=== PATIENT | male | born 1965 | race Two or more races ===

== ENCOUNTER 2024-09-21 04:44 | Observation (INO) | payer MEDICAID, SELFPAY ==
[2024-09-21] VITALS (16 sets, daily range): BP systolic 111–152; BP diastolic 46–102; PULSE 98–123; RESP 15–24; TEMP 36.5–36.9; O2SAT 91–100; BMI 21.7
--- NOTE | 2024-09-21 04:58 | EKG_ITS ---
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
--- NOTE | 2024-09-21 05:37 | XR_ITS ---
Examination: AP chest single view TECHNIQUE: Portable sitting AP chest single view Date and time: September 21, 2024 0553 hours INDICATIONS: Shortness of breath today. FINDINGS: Mild CHF Moderate large pericardial contour. Prominent vascular congestion. Early septal edema perihilar and at the lung bases IMPRESSION: Mild CHF
--- NOTE | 2024-09-21 05:38 | EDRME_ITS ---
Rapid Medical Screening Exam [facility] Arrival date/time: 09/21/24 04:44 59M with history of CHF and HTN presents to ED with 1 day of CP and SOB. Patient states his normal dose of Lasix (40 mg BID) was switched to (20 mg QD) 2 days ago. Patient denies URI symptoms. Chief Complaint: Shortness of Breath/Dyspnea Vital signs: Vital Signs Pulse Rate 109 H 09/21/24 05:06 Respiratory Rate 24 H 09/21/24 05:06 Blood Pressure 134/100 H 09/21/24 05:06 Pulse Oximetry (%) 100 09/21/24 05:06 Oxygen Delivery Method Nasal Cannula 09/21/24 05:06 Oxygen Flow Rate 3 09/21/24 05:06
[2024-09-21 06:04] LABS: Basophils # (Auto) 0.1 Thou/mm3 (0.0-0.2); Basophils % (Auto) 1 % (0-2.5); Eosinophils # (Auto) 0.3 Thou/mm3 (0.0-0.5); Eosinophils % (Auto) 3 % (0-10); Hematocrit 39.7 % (41.0-53.0); Hemoglobin 13.1 g/dL (13.5-16.0); Immature Granulocytes % (Auto) 0 % (0-0); Immature Granulocytes Auto 0.03 Thou/mm3 (0.00-0.00); Lymphocytes # (Auto) 1.8 Thou/mm3 (1.0-4.8); Lymphocytes % (Auto) 19 % (10-50); Mean Corpuscular Hemoglobin 27.9 pg (25.0-35.0); Mean Corpuscular Volume 85 fL (80-100); Monocytes # (Auto) 0.8 Thou/mm3 (0.0-0.8); Monocytes % (Auto) 9 % (0-12); Neutrophils # (Auto) 6.6 Thou/mm3 (1.8-7.7); Neutrophils % (Auto) 69 % (37-80); Nucleated Red Blood Cell % 0 /100 WBC (0); Platelet Count 212 Thou/mm3 (140-440); RDW Standard Deviation 60.6 fL (35.1-43.9); White Blood Count 9.7 Thou/mm3 (3.8-10.6)
[2024-09-21 06:32] LABS: Partial Thromboplastin Time 24.1 Seconds (22.0-36.0); Prothrombin Time 11.2 Seconds (9.0-12.2)
[2024-09-21 06:34] LABS: Alanine Aminotransferase 55 U/L (10-49); Albumin, Serum 4.1 gm/dL (3.5-5.0); Albumin/Globulin Ratio 1.5 (1.2-2.2); Alkaline Phosphatase 120 U/L (46-116); Anion Gap 11 (7-16); Aspartate Amino Transferase 41 U/L (0-34); BUN/Creatinine Ratio 25 Ratio (12-20); Bilirubin,Total 0.5 mg/dL (0.3-1.2); Blood Urea Nitrogen 30 mg/dL (9-23); Calcium 8.8 mg/dL (8.3-10.6); Calcium (Corrected) 8.8 mg/dL (8.5-10.1); Carbon Dioxide 24.2 mMol/L (20.0-31.0); Chloride 108 mMol/L (98-107); Creatinine (Component) 1.2 mg/dL (0.6-1.3); Estimated Creatinine Clearance 69.7 mL/min (>60); Globulin 2.8 gm/dL (2.3-3.5); Glucose 84 mg/dL (74-106); Magnesium 2.1 mg/dL (1.6-2.6); Osmolality,Calculated 290 (275-295); Potassium 4.2 mMol/L (3.4-5.1); Sodium 143 mMol/L (136-145); Total Protein 6.9 gm/dL (5.7-8.2); Troponin I 0.042 ng/mL (0.0-0.045); eGFR > 60 See Note
[2024-09-21] MEDS: FUROSEMIDE INJ 10 MG/ML 4ML VIAL 40 MG IVP ×2 (06:38→07:40)
[2024-09-21 06:39] LABS: B-Type Natriuretic Peptide 2852 pg/mL (0-100)
--- NOTE | 2024-09-21 07:26 | EDNOTE_ITS ---
ED SOB =RME/HPI General Chief Complaint: Shortness of Breath/Dyspnea Stated Complaint: SOB Time Seen by Provider: 09/21/24 06:32 Arrival date/time: 09/21/24 04:44 Limitations: no limitations RME / HPI RME / HPI Narrative: 09/21/24 04:44 59M with history of CHF and HTN presents to ED with 1 day of CP and SOB. Patient states his normal dose of Lasix (40 mg BID) was switched to (20 mg QD) 2 days ago. Patient denies URI symptoms. DR. BATRES MAIN ED EVALUATION: 59 year old male with history of CHF and hypertension presents to the ED for for evaluation of shortness of breath. Described feeling ?full of fluids.? The patient reports that three days ago, he ran out of his medications, which include Carvedilol 6.25 mg BID, Lasix 40 mg BID, potassium, and antihypertensive medication. He consulted with a new PMD, who refilled his prescriptions; however, the Lasix dose was reduced to 20 mg QD. The patient filled the medications yesterday and took one dose of Lasix 20 mg last night, but noted no improvement in his symptoms. Denies any associated fever, chills, chest pain, abdominal pain, nausea, vomiting, diarrhea, or urinary symptoms. Additionally, the patient admits to recent methamphetamine use, and last used four days ago. He recently admitted himself to a [facility] center for drug rehabilitation. Related Data Allergies Allergy/AdvReac Type Severity Reaction Status Date / Time Penicillins Allergy Severe Abdominal Verified 09/21/24 08:37 Pain Review of Systems Review of Systems Systems Reviewed: All systems reviewed, normal except as documented Past Medical History Past Medical History CARDIAC: Positive Congestive Heart Failure and Hypertension RESPIRATORY: Negative Chronic Obstructive Pulmonary Disease (COPD) GENITOURINARY: Negative Renal Disease ENDOCRINE: Negative Diabetes Mellitus Type 1 or Diabetes Mellitus Type 2 Social History SMOKING STATUS: Former smoker ED Exam General Limitations: Present no limitations General appearance: Present alert and other (Tachypneic with elevated respiratory rate, increased work of breathing) Head Head exam: Present atraumatic, normocephalic and normal inspection Eye Eye exam: Present normal appearance, PERRL and EOMI ENT ENT exam: Present normal exam, normal oropharynx and mucous membranes moist Neck Neck exam: Present normal inspection, full ROM and trachea midline Chest Chest inspection: Present normal inspection and symmetric chest wall rise Respiratory Respiratory exam: Present other (Bibasilar crackles, no rales) Cardiovascular Cardiovascular exam: Present regular rate, normal rhythm and normal heart sounds Abdominal Exam Abdominal exam: Present soft and normal bowel sounds Extremities Exam Extremities exam: Present full ROM and other (Discoloration to the skin on bilateral feet and ankles, mildly erythematous from venous stasis, 1-2+ pretibial edema non pitting. ) Back Exam Back exam: Present normal inspection and full ROM Neurological Exam Neurological exam: Present alert, oriented X3 and CN II-XII intact Psychiatric Psychiatric exam: Present normal affect and normal mood Skin Skin exam: Present warm, dry, intact and normal color Course Course Course Narrative: chest xray ordered to help determine etiology of shortness of breath. Quality Measures none Orders Category Date Time Status Admit to Inpatient Status Routine Admission 09/21/24 07:38 Active Patient Condition Routine Admission 09/21/24 07:[address] in Observation Status Routine Admission 09/21/24 07:50 Active Activity as Tolerated Routine Care 09/21/24 07:39 Ordered Bedside COVID-19 Antigen Test NOW Care 09/21/24 07:31 Active Bedside Influenza A&B Antigen Test NOW Care 09/21/24 07:31 Completed COVID-19 Screening Questionnaire NOW Care 09/21/24 07:31 Active Continuous Pulse Oximetry NOW Care 09/21/24 07:38 Completed Decision to Admit X1 Care 09/21/24 07:31 Completed EKG (ED ONLY) *Do not use* NOW Care 09/21/24 04:58 Completed Flu & Pneumonia Vaccine Screen ONCE Care 09/21/24 07:38 Active Notify provider NEEDED Care 09/21/24 07:38 Active Obtain weight daily Care 09/21/24 07:39 Active Saline [Insert IV] NOW Care 09/21/24 07:22 Completed Strict Intake and Output Routine Care 09/21/24 07:39 Ordered Diet Low Sodium (2gm) Diet 09/21/24 Lunch Active CA echo doppler complete Routine Exams 09/21/24 07:40 Ordered EKG (ED Only) Stat Exams 09/21/24 04:58 Draft XR chest 1V portable Stat Exams 09/21/24 05:37 Completed A1C [Glycohemoglobin w (eAG)] AM DRAW Lab 09/22/24 05:00 Ordered B-Type Natriuretic Peptide Stat Lab 09/21/24 05:45 Completed CBC AM DRAW Lab 09/22/24 05:00 Ordered CBC AM DRAW Lab 09/23/24 05:00 Ordered CBC AM DRAW Lab 09/24/24 05:00 Ordered CBC Stat Lab 09/21/24 05:45 Completed Comprehensive Metabolic Panel AM DRAW Lab 09/22/24 05:00 Ordered Comprehensive Metabolic Panel AM DRAW Lab 09/23/24 05:00 Ordered Comprehensive Metabolic Panel AM DRAW Lab 09/24/24 05:00 Ordered Comprehensive Metabolic Panel Stat Lab 09/21/24 05:45 Completed Drug Screen,Urine Stat Lab 09/21/24 07:51 Completed Lipid Panel AM DRAW Lab 09/22/24 05:00 Ordered Magnesium AM DRAW Lab 09/22/24 05:00 Ordered Magnesium Stat Lab 09/21/24 05:45 Completed Partial Thromboplastin Time Stat Lab 09/21/24 05:45 Completed Phosphorous AM DRAW Lab 09/22/24 05:00 Ordered Prothrombin Time with INR Stat Lab 09/21/24 05:45 Completed Troponin I Stat Lab 09/21/24 05:45 Completed Acetaminophen Tab [Tylenol Tab] Med 09/21/24 07:38 Active 650 mg PO Q6H PRN Albuterol/Ipratr Rt Zora [Duoneb Rt Zora] Med 09/21/24 05:36 Discontinued 3 ml INH X1 ONE Furosemide Inj [Lasix Inj] Med 09/21/24 06:23 Discontinued 40 mg IVP X1 ONE Furosemide Inj [Lasix Inj] Med 09/21/24 07:22 Discontinued 40 mg IVP X1 ONE Furosemide [Lasix] Med 09/21/24 05:39 Discontinued 40 mg PO X1 ONE Heparin Inj Med 09/21/24 09:00 Active 5,000 unit SC Q12HR Nitroglycerin Oint 2% [Nitro-paste Oint 2%] Med 09/21/24 07:23 Discontinued 1 inch TOP X1 ONE Ondansetron Inj [Zofran Inj] Med 09/21/24 07:38 Active 4 mg IVP Q6H PRN Senna [Senokot] Med 09/21/24 07:38 Active 1 tab PO QDAY PRN metOLazone [Zaroxolyn] Med 09/21/24 07:23 Discontinued 5 mg PO X1 ONE Code Status Routine Oth 09/21/24 07:38 Ordered Late Tray Request Routine Oth 09/21/24 07:25 Active Vital Signs Vital signs: Vital Signs Pulse Rate 109 H 09/21/24 05:06 Respiratory Rate 24 H 09/21/24 05:06 Blood Pressure 134/100 H 09/21/24 05:06 Pulse Oximetry (%) 100 09/21/24 05:06 Oxygen Delivery Method Nasal Cannula 09/21/24 05:06 Oxygen Flow Rate 3 09/21/24 05:06 Pulse ox is 100% on3L nasal cannula which is adequate. Shortness of Breath / Dyspnea MDM Narrative MDM Narrative:: Aislinn Sorto am scribing for and in the presence of Dr. Batres. 59 year old male with known CHF and hypertension presented with worsening shortness of breath and signs of volume overload after recent medication noncompliance and a reduction in diuretic dosing. Elevated BNP supports acute decompensated heart failure. The patient is hypoxic on presentation, and imaging reveals a pericardial effusion, which may contribute to his symptoms. Given the clinical picture, he was admitted for management of acute CHF exacerbation with hypoxia and close monitoring of the pericardial effusion. Patient data External records reviewed:: None (No previous records for review ) Clinical information provided by:: patient Social determinants that could affect healthcare access:: substance use (Polysubstance abuse, reports smoking marijuana, tobacco, cocaine, and methamphetamine (last smoked 4 days ago) ) Patient has the following chronic illnesses:: CHF, hypertension How is presenting disease/condition affected by chronic disease/condition?: exacerbated by Evaluation data The following diagnostics were reviewed and interpreted by me:: EKG tracing(s) (EKG @ 05:03. Sinus tachycardia, rate 109, ND 173ms, QRS 114ms, QT/QTc 358/422ms, no STEMI. ) Lab and/or radiology exams considered but not ordered:: None Interpretation Summary: Ordering Physician: Memo Jean-Baptiste PA-C Date of Service: 09/21/24 Procedure(s): XR chest 1V portable Accession Number(s): [id number] cc: Brody Randolph MD; Memo Jean-Baptiste PA-C~ Examination: AP chest single view TECHNIQUE: Portable sitting AP chest single view Date and time: September 21, 2024 0553 hours INDICATIONS: Shortness of breath today. FINDINGS: Mild CHF Moderate large pericardial contour. Prominent vascular congestion. Early septal edema perihilar and at the lung bases IMPRESSION: Mild CHF Dictated By: Brody Randolph MD Signed By: <Electronically signed by Brody Randolph MD in OV> 09/21/24 0717 Medications / Prescriptions Medications or Prescriptions considered but not ordered:: None Medication administrations:: Medication Administration History Acetaminophen (Acetaminophen 325 Mg Tablet) 650 mg PO Q6H PRN PRN Reason: Pain 1-3 and/or Fever >100.1 Stop: 10/21/24 07:37 Carvedilol (Carvedilol 3.125 Mg Tablet) 6.25 mg PO BIDWM [facility] Stop: 10/21/24 09:19 Last Admin: 09/21/24 09:57 Dose: 6.25 mg Documented By: ROSMERY Folic Acid (Folic Acid 1 Mg Tablet) 1 mg PO BID [facility] Stop: 09/26/24 20:59 Heparin Sodium (Porcine) (Heparin Sod Inj 5000 Unit/Ml Vial) 5,000 unit SC Q12HR [facility] Stop: 10/05/24 08:59 Last Admin: 09/21/24 08:32 Dose: 5,000 unit Documented By: ROSMERY Co-signed By: DB Lorazepam (Lorazepam 0.5 Mg Tablet) 0.5 mg PO Q4HR PRN PRN Reason: CIWA Score 2-6 Stop: 09/26/24 09:15 Lorazepam (Lorazepam 0.5 Mg Tablet) 1 mg PO Q4HR PRN PRN Reason: CIWA SCORE 7-11 Stop: 09/26/24 09:15 Last Admin: 09/21/24 09:56 Dose: 1 mg Documented By: ROSMERY Lorazepam (Lorazepam 0.5 Mg Tablet) 2 mg PO Q4HR PRN PRN Reason: CIWA SCORE 12-15 Stop: 09/26/24 09:15 Lorazepam (Lorazepam 2 Mg/Ml Vial) 2 mg IV Q2HR PRN PRN Reason: CIWA SCORE 20-25 Stop: 09/26/24 09:15 Lorazepam (Lorazepam 2 Mg/Ml Vial) 2 mg IVP X1 PRN PRN Reason: Breakthrough Agitation Lorazepam (Lorazepam 2 Mg/Ml Vial) 1 mg IV Q2HR PRN PRN Reason: CIWA SCORE 16-19 Stop: 09/26/24 09:15 Ondansetron HCl (Ondansetron Inj 2 Mg/Ml Inj 2 Ml) 4 mg IVP Q6H PRN; Protocol PRN Reason: NAUSEA OR VOMITING Stop: 10/21/24 07:37 Sennosides (Senna Tablet) 1 tab PO QDAY PRN; Protocol PRN Reason: constipation Stop: 10/21/24 07:37 Thiamine HCl (Thiamine 100 Mg Tablet) 100 mg PO BID SUSI Stop: 09/26/24 20:59 Discontinued Medications Albuterol/Ipratropium (Albuterol/Ipratropium (Duoneb) Rt Zora 3 Ml Nebu) 3 ml INH X1 ONE Stop: 09/21/24 05:37 Last Admin: 09/21/24 05:52 Dose: Not Given Documented By: AC Non-Admin Reason: Discontinued Furosemide (Furosemide 40 Mg Tablet) 40 mg PO X1 ONE Stop: 09/21/24 05:40 Last Admin: 09/21/24 06:52 Dose: Not Given Documented By: AC Non-Admin Reason: Discontinued Furosemide (Furosemide Inj 10 Mg/Ml 4ml Vial) 40 mg IVP X1 ONE Stop: 09/21/24 06:24 Last Admin: 09/21/24 06:38 Dose: 40 mg Documented By: CG Furosemide (Furosemide Inj 10 Mg/Ml 4ml Vial) 40 mg IVP X1 ONE Stop: 09/21/24 07:23 Last Admin: 09/21/24 07:40 Dose: 40 mg Documented By: DB Lorazepam (Lorazepam 2 Mg/Ml Vial) 1 mg IV Q2HR PRN PRN Reason: CIWA SCORE 16-19 Stop: 09/26/24 09:15 Metolazone (Metolazone 2.5 Mg Tablet) 5 mg PO X1 ONE Stop: 09/21/24 07:24 Last Admin: 09/21/24 08:29 Dose: 5 mg Documented By: SM Nitroglycerin (Nitroglycerin Oint 2% 1 Inch Packet) 1 inch TOP X1 ONE Stop: 09/21/24 07:24 Last Admin: 09/21/24 07:43 Dose: 1 inch Documented By: DB See above Consultations Consultation(s) initiated? (list below): Yes Consultation #1 (Physician, Specialty, Details): I spoke with resident Dr. Corley working with Dr. Agustin. Discussed patients PMHx, HPI, ED course, exam findings, labs, and radiology results. The hospitalist agree to accept the patient for admission. Time: 07:30 Diagnosis Shortness of Breath Differential Diagnosis: acute exacerbation of chronic obstructive airways disease, congestive heart failure and community acquired pneumonia Most likely diagnosis given after review of the tests above:: Acute CHF Acute hypoxia Acute pericardial effusion Methamphetamine abuse Admission Indicated Admission indicated?: indicated Admission Request Was there a request for admission?: Yes Admission Attestation Admission request attestation: Discussed case with [] from Hospitalist service regarding admission. Discussed patients ED course, exam findings, labs, and radiology results. The Hospitalist [agrees,declines] to accept the patient for admission. Disposition Plan Disposition Plan: Admit Critical Care Time Critical Care Time Critical Care Time: Yes Total Critical Care Time (min.): 45 Attestation: The high probability of sudden, clinically significant deterioration in the patient's condition required the highest level of my preparedness to intervene urgently. The services I provided to this patient were to treat and/or prevent clinically significant deterioration. Services included the following: chart data review, reviewing nursing notes and/or old charts, documentation time, desktop support consultant collaboration regarding findings and treatment options, medication orders and management, direct patient care, vital sign assessments and ordering, interp reting and reviewing diagnostic studies and lab tests. Aggregate critical care time includes only time during which I was engaged in work directly related to the patient's care, as described above, whether at bedside or elsewhere in the Emergency Department. It did not include time spent performing other reported procedures or the services of residents, students, nurses or physician assistants. Discharge Plan Plan Patient Disposition: Admit Acute Care w/in Hospital Problem List Clinical Impression: Acute CHF, Acute pericardial effusion, Methamphetamine abuse, Hypoxia
[2024-09-21] MEDS: NITROGLYCERIN OINT 2% 1 INCH PACKET TOP (07:43)
[2024-09-21 08:28] LABS: Amphetamine/Methamp Scrn,U Positive (Negative); Barbiturate Screen,Urine Negative (Negative); Benzodiazepines Screen,Urine Negative (Negative); Benzoylecgonine Screen, Ur Negative (Negative); Fentanyl Screen,Urine Negative (Negative); Opiate Screen,Urine Negative (Negative); THC Screen,Urine Negative (Negative)
[2024-09-21] MEDS: metOLazone 2.5 MG TABLET 5 MG PO (08:29)
[2024-09-21] MEDS: HEPARIN SOD INJ 5000 UNIT/ML VIAL SC ×2 (08:32→20:07)
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
[2024-09-21] MEDS: LORazepam 0.5 MG TABLET 1 MG PO (09:56)
[2024-09-21] MEDS: carVEDILOL 3.125 MG TABLET 6.25 MG PO ×2 (09:57→17:38)
--- NOTE | 2024-09-21 11:46 | PC.CC ---
Monica DUNN approved until 09/21/25.
--- NOTE | 2024-09-21 12:15 | PC.NURSE ---
PT TALKING TO SELF, STATING THE NURSING ARE WEARING COFFEE ATTENDANT UNIFORMS, AND THEY ARE ONTO ME, I ANIT NO CHILD MOLESTER. PT WAS REORIENTED AND WAS GIVEN AN UPDATE ON PLAN OF CARE.
[2024-09-21] MEDS: LORazepam 2 MG/ML VIAL 1 MG IV (12:19)
[2024-09-21 12:50] LABS: Troponin I 0.045 ng/mL (0.0-0.045)
--- NOTE | 2024-09-21 13:33 | PC.CC ---
MEDICAL ENGINEER student introduced self, role reason for visit. Patient appears to be alert but not oriented to self, location or situation. Patient was unable to engage in initial assessment due to not being receptive of questions being asked. services coordinator to remain available to address further concerns.
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
[2024-09-21] MEDS: ACETAMINOPHEN 325 MG TABLET 650 MG PO (20:05)
[2024-09-21] MEDS: ATORVASTATIN CALCIUM 20 MG TABLET 40 MG PO (20:05)
[2024-09-21] MEDS: FOLIC ACID 1 MG TABLET PO (20:06)
[2024-09-21] MEDS: THIAMINE 100 MG TABLET PO (20:06)
[2024-09-21] MEDS: LORazepam 0.5 MG TABLET PO (20:27)
--- NOTE | 2024-09-21 23:10 | PC.NURSE ---
ICU engineering specialist technician called regarding patient had a run of 7 PVCs and run of v tach for a few seconds now back to sinus tach in the low 100s. Assessed patient at bedside, asymptomatic, no complaints of chest pain, headache, although patient was moving in bed but was resting comfortably in bed. Called Dr. Tobar regarding this, no new orders received.
[2024-09-22] VITALS (13 sets, daily range): BP systolic 106–127; BP diastolic 73–90; PULSE 83–103; RESP 14–24; TEMP 36–36.4; O2SAT 93–98; BMI 21.7
[2024-09-22] MEDS: FUROSEMIDE INJ 10 MG/ML 4ML VIAL 40 MG IVP (04:00)
[2024-09-22] MEDS: LORazepam 0.5 MG TABLET 1 MG PO ×2 (04:11→21:25)
[2024-09-22 06:09] LABS: Basophils # (Auto) 0.1 Thou/mm3 (0.0-0.2); Basophils % (Auto) 1 % (0-2.5); Eosinophils # (Auto) 0.4 Thou/mm3 (0.0-0.5); Eosinophils % (Auto) 6 % (0-10); Hematocrit 40.3 % (41.0-53.0); Hemoglobin 13.3 g/dL (13.5-16.0); Immature Granulocytes % (Auto) 0 % (0-0); Immature Granulocytes Auto 0.03 Thou/mm3 (0.00-0.00); Lymphocytes # (Auto) 2.3 Thou/mm3 (1.0-4.8); Lymphocytes % (Auto) 33 % (10-50); Mean Corpuscular Hemoglobin 27.4 pg (25.0-35.0); Mean Corpuscular Volume 83 fL (80-100); Monocytes # (Auto) 0.5 Thou/mm3 (0.0-0.8); Monocytes % (Auto) 7 % (0-12); Neutrophils # (Auto) 3.7 Thou/mm3 (1.8-7.7); Neutrophils % (Auto) 53 % (37-80); Nucleated Red Blood Cell % 0 /100 WBC (0); Platelet Count 235 Thou/mm3 (140-440); RDW Standard Deviation 58.4 fL (35.1-43.9); Red Blood Count 4.85 Miln/mm3 (4.50-5.90); White Blood Count 6.9 Thou/mm3 (3.8-10.6)
[2024-09-22 06:20] LABS: Glucose Estimated Average 131 mg/dL (80-131); Hemoglobin A1C 6.2 % Hgb (4.8-6.0)
[2024-09-22 06:59] LABS: Alanine Aminotransferase 48 U/L (10-49); Albumin/Globulin Ratio 1.5 (1.2-2.2); Alkaline Phosphatase 113 U/L (46-116); Anion Gap 15 (7-16); Aspartate Amino Transferase 37 U/L (0-34); BUN/Creatinine Ratio 25 Ratio (12-20); Bilirubin,Total 0.7 mg/dL (0.3-1.2); Blood Urea Nitrogen 32 mg/dL (9-23); Calcium 8.9 mg/dL (8.3-10.6); Calcium (Corrected) 8.9 mg/dL (8.5-10.1); Carbon Dioxide 24.4 mMol/L (20.0-31.0); Chloride 100 mMol/L (98-107); Creatinine (Component) 1.3 mg/dL (0.6-1.3); Estimated Creatinine Clearance 64.4 mL/min (>60); Globulin 2.7 gm/dL (2.3-3.5); Glucose 142 mg/dL (74-106); HDL Cholesterol 41 mg/dL (40-60); Magnesium 1.9 mg/dL (1.6-2.6); Osmolality,Calculated 286 (275-295); Phosphorous 4.2 mg/dL (2.4-5.1); Potassium 3.5 mMol/L (3.4-5.1); Sodium 139 mMol/L (136-145); Total Protein 6.7 gm/dL (5.7-8.2); Triglycerides 85 mg/dL (30-150); eGFR > 60 See Note
[2024-09-22] MEDS: THIAMINE 100 MG TABLET PO ×2 (09:00→21:24)
[2024-09-22] MEDS: HEPARIN SOD INJ 5000 UNIT/ML VIAL SC ×2 (09:01→21:38)
[2024-09-22] MEDS: Magnesium Sulfate 2 GM Ivpb 2 GM/50 ML BAG IV (09:01)
[2024-09-22] MEDS: FOLIC ACID 1 MG TABLET PO ×2 (09:01→21:25)
[2024-09-22] MEDS: ASPIRIN EC 81 MG TABEC PO (09:01)
[2024-09-22] MEDS: SACUBITRIL 24 MG/VALSARTAN 26 MG TABLET 1 TAB PO ×2 (09:01→21:24)
[2024-09-22] MEDS: POTASSIUM CHLORIDE 20 mEq TABCR 40 MEQ PO (09:01)
[2024-09-22] MEDS: carVEDILOL 3.125 MG TABLET 6.25 MG PO ×2 (09:01→17:19)
--- NOTE | 2024-09-22 09:43 | ESPR_ITS ---
Documentation for date of: 09/22/24 Subjective Subjective Interval history: No acute overnight events. Reports feeling well this morning, shortness of breath improved significantly. Continued on room air, satting well, vitals WNL. Continued on LASIX 40 BID, had 1.6 L urine output, overall -650 net balance, LE edema improving. Had slight bump in creatinine 1.2 > 1.3, BUN 32. LFTs improving. Recommend continue to LASIX 40 mg IV BID as long as renal function and electrolytes tolerating, may switch to LASIX 40 mg orally otherwise. Likely he will need LASIX 40 mg p.o. daily on discharge. Continue with ENTRESTO. Continue CARVEDILOL. Primary team added FARXIGA, appropriate for CHF and A1C 6.2. Recommended follow-up with cardiology within 1 to 2 weeks with repeat BMP 2 days prior to appointment. Exam Vital Signs Temp Pulse Resp BP Pulse Ox O2 Del Method O2 Flow Rate 97.6 F 99 14 111/80 96 Room Air 2 09/22/24 08:00 09/22/24 09:01 09/22/24 08:00 09/22/24 09:01 09/22/24 08:00 09/22/24 08:00 09/21/24 22:00 Narrative Exam GENERAL * Normal appearing adult male, on room air, NAD HEENT * NCAT.?BERTRAM. Oral mucosa is moist. Patent Nares NECK * Supple, nontender, no thyromegaly, no meningismus, +JVD, no step offs CHEST * Tachycardic, regular rhythm, no m/g/r * Mod bibasilar crackles bilaterally, no wheezing. Symmetrical chest rise. No intercostal subcostal retraction * Atraumatic, nontender, no crepitus, symmetrical expansion. ABDOMEN * Soft, flat, nontender. No guarding/rebound tenderness/masses. * Bowel sounds presents EXTREMITIES * 1+ dustin LE edema. * Mild tenderness to palpation over inferior left scapula without mass or bony deformity. SKIN * Warm and dry, no jaundice/rashes. NEUROMUSCULAR * No lumbar or midline, no CVA, no paraspinal muscle spasm or tenderness. * Moves all 4 extremities well, with full ROM and good CSM. * HUMMEL x4, CN II-XII grossly intact. * No focal neurologic deficits. PSYCHIATRY * Racing thoughts, cooperative, no SI or HI or hallucinations. Objective Labs 09/22/24 05:30 09/22/24 05:30 Labs: Laboratory Results - last 24 hr 09/21/24 09/22/24 12:13 05:30 WBC 6.9 RBC 4.85 Hgb 13.3 L Hct 40.3 L MCV 83 MCH 27.4 MCHC 33.0 RDW Std Deviation 58.4 H Plt Count 235 Neut % (Auto) 53 Lymph % (Auto) 33 [place] % (Auto) 7 Eos % (Auto) 6 Baso % (Auto) 1 Neut # (Auto) 3.7 Lymph # (Auto) 2.3 [place] # (Auto) 0.5 Eos # (Auto) 0.4 Baso # (Auto) 0.1 Immature Gran # (Auto) 0.03 H Absolute Nucleated RBC 0.00 Immature Gran % 0 Nucleated RBC % 0 Sodium 139 Potassium 3.5 D Chloride 100 Carbon Dioxide 24.4 Anion Gap 15 BUN 32 H Creatinine 1.3 Estim Creat Clear Calc 64.4 eGFR > 60 BUN/Creatinine Ratio 25 H Glucose [address] Glu mg/dL 131 Hemoglobin A1c 6.2 H Calculated Osmolality 286 Calcium 8.9 Corrected Calcium 8.9 Phosphorus 4.2 Magnesium 1.9 Total Bilirubin 0.7 AST 37 H ALT 48 Alkaline Phosphatase 113 Troponin I 0.045 Total Protein 6.7 Albumin 4.0 Globulin 2.7 Albumin/Globulin Ratio 1.5 Triglycerides 85 HDL Cholesterol 41 Quality Measures Quality Measures none Assessment & Plan Assessment Current Active Medications: Generic Name Dose Route Start Last Admin Trade Name Freq PRN Reason Stop Dose Admin Acetaminophen 650 mg 09/21/24 07:38 09/21/24 20:05 Acetaminophen 325 Mg Tablet PO 10/21/24 07:37 650 mg Q6H PRN Administration Pain 1-3 and/or Fever >100.1 Aspirin 81 mg 09/22/24 09:00 09/22/24 09:01 Aspirin Ec 81 Mg Tabec PO 10/22/24 08:59 81 mg QDAY SUSI Administration Atorvastatin Calcium 40 mg 09/21/24 21:00 09/21/24 20:05 Atorvastatin Calcium 20 Mg Tablet PO 10/21/24 20:59 40 mg HS SUSI Administration Carvedilol 6.25 mg 09/21/24 09:20 09/22/24 09:01 Carvedilol 3.125 Mg Tablet PO 10/21/24 09:19 6.25 mg BIDWM SUSI Administration Dapagliflozin 5 mg 09/22/24 09:00 09/22/24 09:02 Dapagliflozin Propanediol 5 Mg Tablet PO 10/22/24 08:59 Not Given QAM SUSI Folic Acid 1 mg 09/21/24 21:00 09/22/24 09:01 Folic Acid 1 Mg Tablet PO 09/26/24 20:59 1 mg BID SUSI Administration Furosemide 40 mg 09/22/24 07:00 09/22/24 07:15 Furosemide Inj 10 Mg/Ml 4ml Vial IVP 10/22/24 06:59 Not Given BID SUSI Heparin Sodium (Porcine) 5,000 unit 09/21/24 09:00 09/22/24 09:01 Heparin Sod Inj 5000 Unit/Ml Vial SC 10/05/24 08:59 5,000 unit Q12HR SUSI Administration Magnesium Sulfate 2 gm in 50 mls @ 25 mls/hr 09/22/24 08:12 09/22/24 09:01 Magnesium Sulfate Ivpb IV 09/22/24 10:11 25 mls/hr X1 ONE Administration Lorazepam 0.5 mg 09/21/24 09:16 09/21/24 20:27 Lorazepam 0.5 Mg Tablet PO 09/26/24 09:15 0.5 mg Q4HR PRN Administration CIWA Score 2-6 Lorazepam 1 mg 09/21/24 09:16 09/22/24 04:11 Lorazepam 0.5 Mg Tablet PO 09/26/24 09:15 1 mg Q4HR PRN Administration CIWA SCORE 7-11 Lorazepam 2 mg 09/21/24 09:16 Lorazepam 0.5 Mg Tablet PO 09/26/24 09:15 Q4HR PRN CIWA SCORE 12-15 Lorazepam 2 mg 09/21/24 09:16 Lorazepam 2 Mg/Ml Vial IV 09/26/24 09:15 Q2HR PRN CIWA SCORE 20-25 Lorazepam 2 mg 09/21/24 09:16 Lorazepam 2 Mg/Ml Vial IVP X1 PRN Breakthrough Agitation Lorazepam 1 mg 09/21/24 09:21 09/21/24 12:19 Lorazepam 2 Mg/Ml Vial IV 09/26/24 09:15 1 mg Q2HR PRN Administration CIWA SCORE 16-19 Ondansetron HCl 4 mg 09/21/24 07:38 Ondansetron Inj 2 Mg/Ml Inj 2 Ml IVP 10/21/24 07:37 Q6H PRN NAUSEA OR VOMITING Protocol Sacubitril/Valsartan 1 tab 09/22/24 09:00 09/22/24 09:01 Sacubitril 24 Mg/Valsartan 26 Mg Tablet PO 10/22/24 08:59 1 tab BID SUSI Administration Sennosides 1 tab 09/21/24 07:38 Senna Tablet PO 10/21/24 07:37 QDAY PRN constipation Protocol Thiamine HCl 100 mg 09/21/24 21:00 09/22/24 09:00 Thiamine 100 Mg Tablet PO 09/26/24 20:59 100 mg BID SUSI Administration Plan This is a 59 year-old male coming from [facility] rehab, with PMHx of CHF on home O2 and diuretics, s/p ICD placement, HTN, chronic polysubstance use disorder including METH, COCAINE, TOBACCO and ALCOHOL, IVDU, presenting with worsening SOB and acute chest pain. AHRF 2/2 CHF exacerbation s/p PCI Presentation consistent with acute CHF exacerbation, SOB and worsening LE edema following decrease of home LASIX. He has hx of CHF on home oxygen PRN, follows up with cardiology in [place]. BNP 2852, CXR mod congestion (no PNA) and cardiomegaly, bibasilar crackles, 3+ dustin LE edema which improved after diuresis. Symptoms improved with diuresis, satting well on room air, denies sob or chest pain or palpitations. TG 85, HDL 41, cholesterol and LDL pending. TSH and T4 are pending. A1c 6.2 Continued on LASIX 40 IV BID, had good urine output, overall 650 cc net negative, lower extremity edema improving, satting well on room air. Denies shortness of breath, chest pain or palpitations. Has slight bump in creatinine to 1.3, BUN 42. Recommend continue to LASIX 40 mg IV BID as long as renal function and electrolytes tolerating, may switch to LASIX 40 mg orally otherwise. Continue with ENTRESTO. Continue CARVEDILOL. Continue FARXIGA Likely he will need LASIX 40 mg p.o. daily on discharge Recommended follow-up with cardiology within 1 to 2 weeks with repeat BMP 2 days prior to appointment. Will follow-up with echocardiogram. HTN, HLD Tachycardia (resolved) Significant LVH NSTEMI type 2 SBP normal, DBP slightly elevated likely volume overload, or METH induced tachycardia. HR 110 likely reactive in setting of hypoxemia 2/2 volume overload. EKG sinus tachycardia, ST deviation consistent with LVH 2/2 chronic HTN (no murmur on exam). Trop 0.42 > 0.45 likely NSTEMI type 2, chest pain likely MSK based as noted in HPI. Lipid panel and TSH as noted above. Remains asymptomatic without chest pain, dizziness, lightheadedness or SOB. On ENTRESTO, tolerating well, normotensive, HR WNL Will follow-up with echo to evaluate for AV dysfunction and wall motion abnormalities. Prediabetes A1C 6.2 Now on FARXIGA Polysubstance use disorder As noted in HPI. 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 Management of rest of the medical conditions as per primary team and other consultants. Thank you for the consult and allowing me to participate in the care of the patient. Cardiology will continue to follow. Case was discussed with attending, Dr. Kaur. Sonia Garcia, DO PGYI Attending Provider Attestation/Addendum I have personally seen and examined the patient separately on the above date of service and discussed the plan of care with the resident. I reviewed the resident Dr. Sonia Garcia consultation progress note and agree with the resident findings and plan in the note above and have also edited the documentation to reflect my findings and plan. Jean Kaur M.D. Interventional Cardiology
[2024-09-22 10:27] LABS: Cardiac Risk Estimate 3.8 RATIO (4.0-6.7); Cholesterol 154 mg/dL (132-200); LDL Cholesterol,Calculated 96 mg/dL (0-130)
[2024-09-22 11:52] LABS: Free T4 (Free Thyroxine) 1.14 ng/dL (0.89-1.76); Thyroid Stimulating Hormone 9.41 uIU/mL (0.55-4.78)
--- NOTE | 2024-09-22 14:14 | ECHO_ITS ---
Transthoracic Echo Report Ht (in): 72 Wt (lb): 160 Exam Location: Echo Lab Status: Inpatient Project Drilling Engineer: Melly Mckeon Indications: Procedure Performed: BP: 94 / 69 HR: MEASUREMENTS (Male / Female) Normal Values 2D ECHO LV Diastolic Diameter PLAX 6.9 cm 4.2 - 5.9 / 3.9 - 5.3 cm LV Systolic Diameter PLAX 6.4 cm IVS Diastolic Thickness 0.8 cm 0.6 - 1.0 / 0.6 - 0.9 cm LVPW Diastolic Thickness 0.8 cm 0.6 - 1.0 / 0.6 - 0.9 cm LV Relative Wall Thickness 0.2 LVOT Diameter 1.6 cm LV Ejection Fraction MOD BP 22.3 % >= 55 % LV Ejection Fraction MOD 4C 23.5 % LV Ejection Fraction 4C AL 23.6 % LV Ejection Fraction MOD 2C 17.5 % LV Ejection Fraction 2C AL 15.9 % LA Volume Index 43.2 cm?/m? 16 - 28 cm?/m? M-MODE Aortic Root Diameter MM 3.2 cm LA Systolic Diameter MM 5.0 cm LA Ao Ratio MM 1.6 MV E Point Septal Separation 2.8 cm AV Cusp Separation MM 1.8 cm DOPPLER AV Peak Velocity 127.0 cm/s AV Peak Gradient 6.5 mmHg AV Mean Gradient 3.0 mmHg AV Velocity Time Integral 22.4 cm LVOT Peak Velocity 97.2 cm/s LVOT Peak Gradient 3.8 mmHg LVOT Velocity Time Integral 14.2 cm AV Area Cont Eq vti 1.3 cm? AV Area Cont Eq pk 1.5 cm? MV Area PHT 5.5 cm? MR Peak Velocity 521.0 cm/s MR Peak Gradient 108.6 mmHg Mitral E Point Velocity 69.4 cm/s Mitral A Point Velocity 88.8 cm/s Mitral E to A Ratio 0.8 LV E' Lateral Velocity 3.1 cm/s Mitral E to LV E' Lateral Ratio 22.0 LV E' Septal Velocity 4.0 cm/s Mitral E to LV E' Septal Ratio 17.2 TR Peak Velocity 248.3 cm/s TR Peak Gradient 24.7 mmHg PV Peak Velocity 71.9 cm/s PV Peak Gradient 2.1 mmHg FINDINGS Left Ventricle Normal left ventricular size and wall thickness. The ejection fraction is visually estimated at 15-20%.global left ventricular systolic function is severely decreased. There is grade II diastolic dysfunction of the left ventricle (pseudonormal filling pattern). Right Ventricle The right ventricle is normal in size and systolic function. The estimated right ventricular systolic pressure, 31 mmHg. RAP 5. Left Atrium Moderately increased left atrial volume 43.2 mL/m?. Right Atrium The right atrial cavity size is mildly increased. Atrial Septum The interatrial septum appears normal with no evidence of a shunt. Aorta The aorta is normal by two-dimensional, color flow and Doppler interrogation. Mitral Valve The mitral valve is normal by two-dimensional, color flow and Doppler interrogation. Moderate mitral regurgitation. Aortic Valve The aortic valve is trileaflet and normal by two-dimensional, color flow and Doppler interrogation. There is no significant aortic valve regurgitation. Tricuspid Valve The tricuspid valve is normal by two-dimensional, color flow and Doppler interrogation. There is mild tricuspid valve regurgitation. Pulmonic Valve The pulmonic valve is not well visualized. There is no significant pulmonic valve regurgitation. Vessels The pulmonary artery appears normal. The inferior vena cava pulmonary and hepatic veins appear normal. Pericardium The pericardium is normal by two-dimensional imaging. There is no significant pericardial effusion. CONCLUSIONS Indication: CHF Normal LV size and wall thickness. Estimated EF 15-20%. Global left ventricular systolic function is severely decreased. Grade II diastolic dysfunction. Normal RV size and mild systolic dysfunction. The estimated RVSP, 31 mmHg. RAP 5. Moderately increased LA volume 44 mL/m?. The RA size is mildly increased. Moderate MR. Mild TR. Dilated IVC. Jean Kaur (Electronically Signed) Final Date: 24 Sep 2024 11:02
--- NOTE | 2024-09-22 15:13 | ESPR_ITS ---
Documentation for date of: 09/22/24 Subjective Subjective Interval history: Patient was seen and examined at bedside this AM. No acute events overnight. Patient on fluid restriction diet 1500cc, adequate urine output and mentation is at baseline. Patient endorses improvement of shortness of breath improved significantly. Sats 95-97% on room air, ambulation encouraged, tolerating well. Over the last 24 hours, he had -1.2L net balance (not documented adequately). Nurse advised for strict I&Os documentation Started on GDMT with LASIX 40 qD + ENTRESTO 1tab BID + CARVEDILOL 6.25 BID - tolerating well. Will add FARXIGA 5mg for optimization, also for A1c 6.2% . Appreciate Cardiology input. Will recommended follow-up with cardiology after discharge as well as repeat BMP 2 days prior to appointment. Exam Vital Signs Temp Pulse Resp BP Pulse Ox O2 Del Method O2 Flow Rate 97.6 F 99 24 H 111/80 96 Room Air 2 09/22/24 08:00 09/22/24 12:00 09/22/24 08:58 09/22/24 09:01 09/22/24 08:58 09/22/24 08:00 09/21/24 22:00 Narrative Exam Constitutional Alert, oriented x3 and comfortable. On RA HEENT Vision grossly intact. Patent nares. Trachea midline. Respiratory Chest normal on inspection and soft wheezes on auscultation. Cardiovascular S1 and S2 audible, RRR. No murmurs or carotid bruit. + JVD. Abdominal Soft and BS + ; non tender to palpation in all quadrants. Genitourinary No bladder tenderness, no flank pain. Normal to palpation. Good urine output Musculoskeletal Extremities tone within normal limits. No LE edema. Neurological CN II - XII grossly intact. Extremity motor and sensation grossly intact. Skin Warm, dry and intact. No apparent lesions. Psychiatric Patient has a good affect, is cooperative. Objective Labs 09/23/24 05:07 09/23/24 05:07 Labs: Laboratory Results - last 24 hr 09/22/24 05:30 WBC 6.9 RBC 4.85 Hgb 13.3 L Hct 40.3 L MCV 83 MCH 27.4 MCHC 33.0 RDW Std Deviation 58.4 H Plt Count 235 Neut % (Auto) 53 Lymph % (Auto) 33 [place] % (Auto) 7 Eos % (Auto) 6 Baso % (Auto) 1 Neut # (Auto) 3.7 Lymph # (Auto) 2.3 [place] # (Auto) 0.5 Eos # (Auto) 0.4 Baso # (Auto) 0.1 Immature Gran # (Auto) 0.03 H Absolute Nucleated RBC 0.00 Immature Gran % 0 Nucleated RBC % 0 Sodium 139 Potassium 3.5 D Chloride 100 Carbon Dioxide 24.4 Anion Gap 15 BUN 32 H Creatinine 1.3 Estim Creat Clear Calc 64.4 eGFR > 60 BUN/Creatinine Ratio 25 H Glucose [address] Glu mg/dL 131 Hemoglobin A1c 6.2 H Calculated Osmolality 286 Calcium 8.9 Corrected Calcium 8.9 Phosphorus 4.2 Magnesium 1.9 Total Bilirubin 0.7 AST 37 H ALT 48 Alkaline Phosphatase 113 Total Protein 6.7 Albumin 4.0 Globulin 2.7 Albumin/Globulin Ratio 1.5 Triglycerides 85 Cholesterol 154 LDL Cholesterol, Calc 96 HDL Cholesterol 41 Cholesterol/HDL Ratio 3.8 L TSH 9.41 H Free T4 1.14 Quality Measures Quality Measures none Assessment & Plan Assessment Current Active Medications: Generic Name Dose Route Start Last Admin Trade Name Freq PRN Reason Stop Dose Admin Acetaminophen 650 mg 09/21/24 07:38 09/21/24 20:05 Acetaminophen 325 Mg Tablet PO 10/21/24 07:37 650 mg Q6H PRN Administration Pain 1-3 and/or Fever >100.1 Aspirin 81 mg 09/22/24 09:00 09/22/24 09:01 Aspirin Ec 81 Mg Tabec PO 10/22/24 08:59 81 mg QDAY SUSI Administration Atorvastatin Calcium 40 mg 09/21/24 21:00 09/21/24 20:05 Atorvastatin Calcium 20 Mg Tablet PO 10/21/24 20:59 40 mg HS SUSI Administration Carvedilol 6.25 mg 09/21/24 09:20 09/22/24 09:01 Carvedilol 3.125 Mg Tablet PO 10/21/24 09:19 6.25 mg BIDWM SUSI Administration Dapagliflozin 5 mg 09/22/24 09:00 09/22/24 09:02 Dapagliflozin Propanediol 5 Mg Tablet PO 10/22/24 08:59 Not Given QAM SUSI Folic Acid 1 mg 09/21/24 21:00 09/22/24 09:01 Folic Acid 1 Mg Tablet PO 09/26/24 20:59 1 mg BID SUSI Administration Furosemide 40 mg 09/23/24 09:00 Furosemide 40 Mg Tablet PO 10/23/24 08:59 QDAY SUSI Heparin Sodium (Porcine) 5,000 unit 09/21/24 09:00 09/22/24 09:01 Heparin Sod Inj 5000 Unit/Ml Vial SC 10/05/24 08:59 5,000 unit Q12HR SUSI Administration Lorazepam 0.5 mg 09/21/24 09:16 09/21/24 20:27 Lorazepam 0.5 Mg Tablet PO 09/26/24 09:15 0.5 mg Q4HR PRN Administration CIWA Score 2-6 Lorazepam 1 mg 09/21/24 09:16 09/22/24 04:11 Lorazepam 0.5 Mg Tablet PO 09/26/24 09:15 1 mg Q4HR PRN Administration CIWA SCORE 7-11 Lorazepam 2 mg 09/21/24 09:16 Lorazepam 0.5 Mg Tablet PO 09/26/24 09:15 Q4HR PRN CIWA SCORE 12-15 Lorazepam 2 mg 09/21/24 09:16 Lorazepam 2 Mg/Ml Vial IV 09/26/24 09:15 Q2HR PRN CIWA SCORE 20-25 Lorazepam 2 mg 09/21/24 09:16 Lorazepam 2 Mg/Ml Vial IVP X1 PRN Breakthrough Agitation Lorazepam 1 mg 09/21/24 09:21 09/21/24 12:19 Lorazepam 2 Mg/Ml Vial IV 09/26/24 09:15 1 mg Q2HR PRN Administration CIWA SCORE 16-19 Ondansetron HCl 4 mg 09/21/24 07:38 Ondansetron Inj 2 Mg/Ml Inj 2 Ml IVP 10/21/24 07:37 Q6H PRN NAUSEA OR VOMITING Protocol Sacubitril/Valsartan 1 tab 09/22/24 09:00 09/22/24 09:01 Sacubitril 24 Mg/Valsartan 26 Mg Tablet PO 10/22/24 08:59 1 tab BID SUSI Administration Sennosides 1 tab 09/21/24 07:38 Senna Tablet PO 10/21/24 07:37 QDAY PRN constipation Protocol Thiamine HCl 100 mg 09/21/24 21:00 09/22/24 09:00 Thiamine 100 Mg Tablet PO 09/26/24 20:59 100 mg BID SUSI Administration Plan Mr Aguilar is a 59-year-old male with past medical history of coronary artery disease status post stent placement, hypertension, congestive heart failure, hyperlipidemia, substance use disorder (meth, cocaine, marijuana) presenting to the ED on 09/21 with episode of chest pain and shortness of breath will be admitted for observation of chest pain with echocardiogram ordered for CHF exacerbation and cardiology consultation. Acute decompensation of congestive heart failure History of coronary artery disease, status post stent Primary Hypertension T2 DM , A1c 6.2% As stated above, patient has history of congestive heart failure. Guideline based medical therapy pending official med rec Patient follows Dr. Antony who has recommended ICD placement Per HPI, patient's been having chest pain shortness of breath since yesterday around 9 PM On examination, patient has anxiety but denies having active chest pain. JVD is present. Troponin stable at 0.042 => 0.045 - BNP of 2852 - EKG : sinus tachycardia with possible left atrial enlargement, left ventricular hypertrophy and some T wave changes noted on lateral leads. - Chest x-ray : moderate to large pericardial contour, mild CHF, prominent vascular congestion and early septal edema at the perihilar and lung bases. - In the ED, patient received a total of 80 mg of Lasix with good urine output adequate response; also given nitroglycerin patch - NYHA Class II at baseline - Over the last 24 hours, he had -1.2L net balance (not documented adequately) Plan: - Cardiology consulted, appreciate recommendations - ECHO ordered - Transitioned from IV -> PO LASIX 40 qD - On ENTRESTO 1tab BID - On CARVEDILOL 6.25 BIDWM - Added FARXIGA 5mg for optimization, also for A1c 6.2% - Strict input/output charting - Daily weight recording - Fluid restriction to 1.5L - Will keep magnesium greater than 2 and potassium greater than 4 Hyperlipidemia Lipid panel : wnl Plan: - Will restart home medication: atorvastatin 40 mg p.o. at bedtime Substance use disorder Alcohol use disorder Patient in [facility] program for substance use disorder (meth use disorder, cocaine use disorder and marijuana use disorder) Patient is U-Tox positive for methamphetamine and he states that his last drink was about 4 days ago Plan: - [facility] protocol initiated - special services supervisor consult Hospital Management: Dispo: Pending echo read. Anticipate DC in 24 hours. Lines: PIV Diet: Cardiac w/ fluid restriction to 1500cc Bowel: Senna GI prophylaxis: Not needed DVT prophylaxis: Heparin subcu Code: Full code Plan of care discussed with attending Angelo Guardado M.D. PGY2 Disclaimer: Minor errors in vp data may be present as this note was dictated using voice recognition software. Attending Provider Attestation/Addendum Noreen, Brenda Agustin DO, attest that I was physically present for the gilliam portions of the service and evaluated the patient with the resident and I reviewed and discussed the case with the resident and agree with the resident's findings and plans of care as documented above Patient seen and eval this a.m. He states that he is feeling improved. Patient is able to speak in full sentences and does not appear short of breath. Pending echocardiogram results at this time. He remains on goal-directed medical therapy with diuretics, beta-rosy and Entresto. Pending cardio recommendations. Anticipate discharge within next 24 hours.
[2024-09-22] MEDS: ATORVASTATIN CALCIUM 20 MG TABLET 40 MG PO (21:24)
[2024-09-22] MEDS: ACETAMINOPHEN 325 MG TABLET 650 MG PO (21:26)
--- NOTE | 2024-09-22 21:42 | PC.NURSE ---
pt feeling sob, requesting O2 inh on. 97% O2 sat on room air- Applied O2 inh on at 1L/min/nc.
--- NOTE | 2024-09-22 21:43 | PC.NURSE ---
Per pt needs a stent placement, if possible while admitted here at [facility]. Per pt three yrs ago had a stent placed on right leg at [facility]. He needed stent on left leg also but anesthesiologis /md rescheduled it because of longer hours in surgery if they do left and right leg together and pt may not tolerate longer hours. Two to 3 mons. ago per pt he was sheduled for stent plcement on left leg but went ama like a day before surgery.
[2024-09-23] VITALS (8 sets, daily range): BP systolic 94–109; BP diastolic 69–89; PULSE 86–95; RESP 16–28; TEMP 36.1–36.4; O2SAT 92–99; BMI 21.7
[2024-09-23 05:54] LABS: Basophils # (Auto) 0.1 Thou/mm3 (0.0-0.2); Basophils % (Auto) 2 % (0-2.5); Eosinophils # (Auto) 0.5 Thou/mm3 (0.0-0.5); Eosinophils % (Auto) 6 % (0-10); Hematocrit 44.3 % (41.0-53.0); Hemoglobin 14.7 g/dL (13.5-16.0); Immature Granulocytes % (Auto) 0 % (0-0); Immature Granulocytes Auto 0.03 Thou/mm3 (0.00-0.00); Lymphocytes # (Auto) 2.9 Thou/mm3 (1.0-4.8); Lymphocytes % (Auto) 33 % (10-50); Mean Corpuscular HGB Conc 33.2 g/dl (31.0-37.0); Mean Corpuscular Hemoglobin 27.6 pg (25.0-35.0); Mean Corpuscular Volume 83 fL (80-100); Monocytes % (Auto) 11 % (0-12); Neutrophils # (Auto) 4.2 Thou/mm3 (1.8-7.7); Neutrophils % (Auto) 48 % (37-80); Nucleated Red Blood Cell % 0 /100 WBC (0); Platelet Count 275 Thou/mm3 (140-440); RDW Standard Deviation 57.1 fL (35.1-43.9); Red Blood Count 5.33 Miln/mm3 (4.50-5.90); White Blood Count 8.7 Thou/mm3 (3.8-10.6)
[2024-09-23 06:29] LABS: Alanine Aminotransferase 45 U/L (10-49); Albumin, Serum 3.6 gm/dL (3.5-5.0); Albumin/Globulin Ratio 1.4 (1.2-2.2); Alkaline Phosphatase 111 U/L (46-116); Anion Gap 9 (7-16); Aspartate Amino Transferase 35 U/L (0-34); BUN/Creatinine Ratio 26 Ratio (12-20); Bilirubin,Total 0.6 mg/dL (0.3-1.2); Blood Urea Nitrogen 31 mg/dL (9-23); Calcium 8.5 mg/dL (8.3-10.6); Calcium (Corrected) 8.8 mg/dL (8.5-10.1); Carbon Dioxide 25.4 mMol/L (20.0-31.0); Chloride 104 mMol/L (98-107); Creatinine (Component) 1.2 mg/dL (0.6-1.3); Estimated Creatinine Clearance 69.7 mL/min (>60); Globulin 2.6 gm/dL (2.3-3.5); Glucose 86 mg/dL (74-106); Osmolality,Calculated 281 (275-295); Potassium 4.2 mMol/L (3.4-5.1); Sodium 138 mMol/L (136-145); Total Protein 6.2 gm/dL (5.7-8.2); eGFR > 60 See Note
[2024-09-23] MEDS: Furosemide 40 MG TABLET PO (08:19)
[2024-09-23] MEDS: ASPIRIN EC 81 MG TABEC PO (08:19)
[2024-09-23] MEDS: carVEDILOL 3.125 MG TABLET PO (08:19)
[2024-09-23] MEDS: FOLIC ACID 1 MG TABLET PO (08:20)
[2024-09-23] MEDS: SACUBITRIL 24 MG/VALSARTAN 26 MG TABLET 1 TAB PO (08:20)
[2024-09-23] MEDS: THIAMINE 100 MG TABLET PO (08:20)
[2024-09-23] MEDS: DAPAGLIFLOZIN PROPANEDIOL 5 MG TABLET PO (08:20)
--- NOTE | 2024-09-23 10:03 | ESPR_ITS ---
Documentation for date of: 09/23/24 Subjective Subjective Interval history: No acute overnight events. Feels well today, reports no new symptoms or worsening of symptoms. Satting well on room air. BP slightly soft today, HR 80s. CR improved slightly 1.3 > 1.2, BUN 32 > 31. Remainder CHEM panel and CBC are relatively normal. Continue with current management, COREG, ENTRESTO, LASIX and FARXIGA. ECHO showed EEF 15-20%, decrease LV and RV function, dilated cardiomyopathy, diastolic dysfunction present but cannot be graded, mild-mod MR/TR. Will continue with GDMT. Recommended METH/COCAINE cessation given given ECHO findings. Mortality remains very high. Will need ICD however currently not a candidate given active METH use. Will need close cardiology follow-up after discharge, repeat ECHO in 3 months. Exam Vital Signs Temp Pulse Resp BP Pulse Ox O2 Del Method O2 Flow Rate 97.0 F 87 28 H 107/80 97 Room Air 2 09/23/24 08:00 09/23/24 08:19 09/23/24 08:15 09/23/24 08:19 09/23/24 08:15 09/23/24 08:00 09/23/24 08:00 Narrative Exam GENERAL * Normal appearing adult male, on room air, NAD HEENT * NCAT.?BERTRAM. Oral mucosa is moist. Patent Nares NECK * Supple, nontender, no thyromegaly, no meningismus, +JVD, no step offs CHEST * RRR, no m/g/r * Mod bibasilar crackles bilaterally, no wheezing. Symmetrical chest rise. No intercostal subcostal retraction * Atraumatic, nontender, no crepitus, symmetrical expansion. ABDOMEN * Soft, flat, nontender. No guarding/rebound tenderness/masses. * Bowel sounds presents EXTREMITIES * No dustin LE edema. * Mild tenderness to palpation over inferior left scapula without mass or bony deformity. SKIN * Warm and dry, no jaundice/rashes. NEUROMUSCULAR * No lumbar or midline, no CVA, no paraspinal muscle spasm or tenderness. * Moves all 4 extremities well, with full ROM and good CSM. * HUMMEL x4, CN II-XII grossly intact. * No focal neurologic deficits. PSYCHIATRY * Racing thoughts, cooperative, no SI or HI or hallucinations. Objective Labs 09/23/24 05:07 09/23/24 05:07 Labs: Laboratory Results - last 24 hr 09/22/24 09/23/24 05:30 05:07 WBC 8.7 RBC 5.33 Hgb 14.7 Hct 44.3 MCV 83 MCH 27.6 MCHC 33.2 RDW Std Deviation 57.1 H Plt Count 275 D Neut % (Auto) 48 Lymph % (Auto) 33 Glasscock % (Auto) 11 Eos % (Auto) 6 Baso % (Auto) 2 Neut # (Auto) 4.2 Lymph # (Auto) 2.9 Glasscock # (Auto) 1.0 H Eos # (Auto) 0.5 Baso # (Auto) 0.1 Immature Gran # (Auto) 0.03 H Absolute Nucleated RBC 0.00 Immature Gran % 0 Nucleated RBC % 0 Sodium 138 Potassium 4.2 D Chloride 104 Carbon Dioxide 25.4 Anion Gap 9 BUN 31 H Creatinine 1.2 Estim Creat Clear Calc 69.7 eGFR > 60 BUN/Creatinine Ratio 26 H Glucose 86 D Calculated Osmolality 281 Calcium 8.5 Corrected Calcium 8.8 Magnesium 2.0 Total Bilirubin 0.6 AST 35 H ALT 45 Alkaline Phosphatase 111 Total Protein 6.2 Albumin 3.6 Globulin 2.6 Albumin/Globulin Ratio 1.4 Cholesterol 154 LDL Cholesterol, Calc 96 Cholesterol/HDL Ratio 3.8 L TSH 9.41 H Free T4 1.14 Quality Measures Quality Measures none Assessment & Plan Assessment Current Active Medications: Generic Name Dose Route Start Last Admin Trade Name Freq PRN Reason Stop Dose Admin Acetaminophen 650 mg 09/21/24 07:38 09/22/24 21:26 Acetaminophen 325 Mg Tablet PO 10/21/24 07:37 650 mg Q6H PRN Administration Pain 1-3 and/or Fever >100.1 Aspirin 81 mg 09/22/24 09:00 09/23/24 08:19 Aspirin Ec 81 Mg Tabec PO 10/22/24 08:59 81 mg QDAY SUSI Administration Atorvastatin Calcium 40 mg 09/21/24 21:00 09/22/24 21:24 Atorvastatin Calcium 20 Mg Tablet PO 10/21/24 20:59 40 mg HS SUSI Administration Carvedilol 3.125 mg 09/23/24 08:00 09/23/24 08:19 Carvedilol 3.125 Mg Tablet PO 10/23/24 07:59 3.125 mg BIDWM SUSI Administration Dapagliflozin 5 mg 09/22/24 09:00 09/23/24 08:20 Dapagliflozin Propanediol 5 Mg Tablet PO 10/22/24 08:59 5 mg QAM SUSI Administration Folic Acid 1 mg 09/21/24 21:00 09/23/24 08:20 Folic Acid 1 Mg Tablet PO 09/26/24 20:59 1 mg BID SUSI Administration Furosemide 40 mg 09/23/24 09:00 09/23/24 08:19 Furosemide 40 Mg Tablet PO 10/23/24 08:59 40 mg QDAY SUSI Administration Lorazepam 0.5 mg 09/21/24 09:16 09/21/24 20:27 Lorazepam 0.5 Mg Tablet PO 09/26/24 09:15 0.5 mg Q4HR PRN Administration CIWA Score 2-6 Lorazepam 1 mg 09/21/24 09:16 09/22/24 21:25 Lorazepam 0.5 Mg Tablet PO 09/26/24 09:15 1 mg Q4HR PRN Administration CIWA SCORE 7-11 Lorazepam 2 mg 09/21/24 09:16 Lorazepam 0.5 Mg Tablet PO 09/26/24 09:15 Q4HR PRN CIWA SCORE 12-15 Lorazepam 2 mg 09/21/24 09:16 Lorazepam 2 Mg/Ml Vial IV 09/26/24 09:15 Q2HR PRN CIWA SCORE 20-25 Lorazepam 2 mg 09/21/24 09:16 Lorazepam 2 Mg/Ml Vial IVP X1 PRN Breakthrough Agitation Lorazepam 1 mg 09/21/24 09:21 09/21/24 12:19 Lorazepam 2 Mg/Ml Vial IV 09/26/24 09:15 1 mg Q2HR PRN Administration CIWA SCORE 16-19 Ondansetron HCl 4 mg 09/21/24 07:38 Ondansetron Inj 2 Mg/Ml Inj 2 Ml IVP 10/21/24 07:37 Q6H PRN NAUSEA OR VOMITING Protocol Sacubitril/Valsartan 1 tab 09/22/24 09:00 09/23/24 08:20 Sacubitril 24 Mg/Valsartan 26 Mg Tablet PO 10/22/24 08:59 1 tab BID SUSI Administration Sennosides 1 tab 09/21/24 07:38 Senna Tablet PO 10/21/24 07:37 QDAY PRN constipation Protocol Thiamine HCl 100 mg 09/21/24 21:00 09/23/24 08:20 Thiamine 100 Mg Tablet PO 09/26/24 20:59 100 mg BID SUSI Administration Plan This is a 59 year-old male coming from [facility] rehab, with PMHx of CHF on home O2 and diuretics, s/p ICD placement, HTN, chronic polysubstance use disorder including METH, COCAINE, TOBACCO and ALCOHOL, IVDU, presenting with worsening SOB and acute chest pain. 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 He has hx of CHF on home oxygen PRN, follows up with cardiology in [place]. BNP 2852, CXR mod congestion (no PNA) and cardiomegaly, bibasilar crackles, 3+ dustni LE edema which improved after diuresis. Symptoms improved with diuresis, satting well on room air, denies sob or chest pain or palpitations. TG 85, HDL 41, cholesterol 154, LDL 96. TSH 9.41, free T4 1.14. A1c 6.2 ECHO showed EEF 15-20%, decrease LV and RV function, dilated cardiomyopathy, diastolic dysfunction present but cannot be graded, mild-mod MR/TR. Continued on LASIX 40 PO daily, had 500 cc urine output. No signs of fluid overload, no lower extremity edema, lungs are clear, on room air, satting well. Denies shortness of breath or chest pain. He had slight bump in creatinine yesterday, but renal function appears better today, CR 1.2, BUN 31. Will continue with GDMT. Recommended METH/COCAINE cessation given given ECHO findings. Mortality remains very high. Will need ICD however currently not a candidate given active METH use. Will need close cardiology follow-up after discharge, repeat ECHO in 3 months. Continue LASIX 40 mg NPO daily Continue with ENTRESTO BID Continue CARVEDILOL 3.125 mg daily Continue FARXIGA 5 mg daily Likely he will need LASIX 40 mg p.o. daily on discharge Will follow-up with echocardiogram. Recommended follow-up with cardiology within 1 to 2 weeks with repeat BMP 2 days prior to appointment. HTN, HLD Tachycardia (resolved) Significant LVH NSTEMI type 2 SBP normal, DBP slightly elevated likely volume overload, or METH induced tachycardia. HR 110 likely reactive in setting of hypoxemia 2/2 volume overload. EKG sinus tachycardia, ST deviation consistent with LVH 2/2 chronic HTN (no murmur on exam). Trop 0.42 > 0.45 likely NSTEMI type 2, chest pain likely MSK based as noted in HPI. Lipid panel and TSH as noted above. Remains asymptomatic without chest pain, dizziness, lightheadedness or SOB. On ENTRESTO, tolerating well, BP slightly soft, HR WNL Will follow-up with echo to evaluate for AV dysfunction and wall motion abnormalities. Prediabetes A1C 6.2 Now on FARXIGA Polysubstance use disorder As noted in HPI. 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 Management of rest of the medical conditions as per primary team and other consultants. Thank you for the consult and allowing me to participate in the care of the patient. Cardiology will continue to follow. Case was discussed with attending, Dr. Kaur. Sonia Garcia DO PGYI Attending Provider Attestation/Addendum I have personally seen and examined the patient separately on the above date of service and discussed the plan of care with the resident. I reviewed the resident Dr. Sonia Garcia consultation progress note and agree with the resident findings and plan in the note above and have also edited the documentation to reflect my findings and plan. Jean Kaur M.D. Interventional Cardiology
--- NOTE | 2024-09-23 11:30 | ESDS_ITS ---
<Statement entered by Brenda Agustin DO - 09/23/24 16:40> I, Brenda Agustin DO, attest that I was physically present for the gilliam portions of the service and evaluated the patient with the resident and I reviewed and discussed the case with the resident and agree with the resident's findings and plans of care as documented above Planned Discharge Date 09/23/24 DS: Providers Provider Date of admission: 09/21/24 08:07 Primary care physician: Physician No Primary/Family Admitting Provider: Brenda Agustin DO Attending Provider on Admission: Brenda Agustin DO Consults: 09/21/24 10:23 Consult to Cardiology Routine Comment: acute CHF Consulting Provider: Jean Kaur 09/21/24 10:51 Referral Registered Dietitian Stat Comment: 09/22/24 08:06 Referral Registered Dietitian Routine Comment: Attending Provider on DC: Brenda Agustin DO Discharging Provider: Oleksandr Blanco MD DS: Diagnosis Discharge Diagnosis (1) Acute CHF: Status: Acute (2) Methamphetamine abuse: Status: Acute Problem List Completed Was Problem List Reviewed/Reconciled?: Yes Hospital Course Hospital Course Hospital course: Hospital Course: Mr Aguilar is a 59-year-old male with past medical history of coronary artery disease status post stent placement, hypertension, congestive heart failure, hyperlipidemia, substance use disorder (meth, cocaine, marijuana) presenting to the ED on 09/21 with episode of chest pain and shortness of breath will be admitted for observation of chest pain with echocardiogram ordered for CHF exacerbation and cardiology consultation. BNP of 2852 on labs. Chest x-ray showed moderate to large pericardial contour, mild CHF, prominent vascular congestion and early septal edema at the perihilar and lung bases. Per Cardio recommendations, will continue with GDMT with COREG, ENTRESTO, LASIX and FARXIGA. ECHO showed EEF 15-20%, decrease LV and RV function, dilated cardiomyopathy, diastolic dysfunction present but cannot be graded, mild-mod MR/TR. Will continue with GDMT. Recommended METH/COCAINE cessation given given ECHO findings. Mortality remains very high. Patient will need ICD however currently not a candidate given active METH use. Will need close cardiology follow-up after discharge, with repeat ECHO in 3 months. Problems on this admission: - Acute decompensation of congestive heart failure - History of coronary artery disease, status post stent - Primary Hypertension - T2 DM , A1c 6.2% - Hyperlipidemia - Substance use disorder - Alcohol use disorder Procedures: ECHO : Estimated LVEF 15-20%, severe RV and LV dysfunction, dilated cardiomyopathy. Severe MR and TR. Discharge instructions: - Follow up with PCP within 1 week. Call [phone] for an appointment at [facility] on [phone] - Take Lasix 40mg daily for heart failure - Started Farxiga 5mg , Entresto 1tab twice daily and Coreg 3.125 twice daily for optimization - Continue aspirin and atorvastatin - Avoid consuming more than 1.5 - 2L fluid in a day. - Return to ED if symptoms worsen We are grateful to be able to participate in Mr Aguilar's care. We wish him the best. Plan of care discussed with attending Oleksandr Guardado M.D. PGY2 Disclaimer: Minor errors in development system efficiency manager may be present as this note was dictated using voice recognition software. Status at Discharge Cognitive/behavioral status at discharge: Stable and returned to baseline Time Spent with Patient Time attestation: Total time spent providing and/or coordinating discharge services: more htan 50% Time spent: Greater than 30 minutes Exam Vital Signs Temp Pulse Resp BP Pulse Ox O2 Del Method O2 Flow Rate 97.0 F 87 28 H 107/80 97 Room Air 2 09/23/24 08:00 09/23/24 08:19 09/23/24 08:15 09/23/24 08:19 09/23/24 08:15 09/23/24 08:00 09/23/24 08:00 Narrative Exam Constitutional Alert, oriented x3 and comfortable. On RA HEENT Vision grossly intact. Patent nares. Trachea midline. Respiratory Chest normal on inspection and soft wheezes on auscultation. Cardiovascular S1 and S2 audible, RRR. No murmurs or carotid bruit. + JVD. Abdominal Soft and BS + ; non tender to palpation in all quadrants. Genitourinary No bladder tenderness, no flank pain. Normal to palpation. Good urine output Musculoskeletal Extremities tone within normal limits. No LE edema. Neurological CN II - XII grossly intact. Extremity motor and sensation grossly intact. Skin Warm, dry and intact. No apparent lesions. Psychiatric Patient has a good affect, is cooperative. Discharge Plan Plan Patient Disposition: HOME (Self Care) Patient condition on transfer: Stable Care Plan Goals: - Follow up with PCP within 1 week. Call [phone] for an appointment at [facility] on [phone] - Take Lasix 40mg daily for heart failure - Started Farxiga 5mg , Entresto 1tab twice daily and Coreg 3.125 twice daily for optimization - Continue aspirin and atorvastatin - Avoid consuming more than 1.5 - 2L fluid in a day. - Return to ED if symptoms worsen Prescriptions/Referrals Prescriptions/Med Rec: New atorvastatin 20 mg Tablet 40 mg PO HS 30 Days Qty: 60 0RF aspirin [Ecotrin Low Strength] 81 mg Tablet,Delayed Release (Dr/Ec) 81 mg PO QDAY 30 Days Qty: 30 0RF furosemide 40 mg Tablet 40 mg PO QDAY 30 Days Qty: 30 0RF carvedilol 3.125 mg Tablet 3.125 mg PO BIDWM 30 Days Qty: 30 0RF dapagliflozin propanediol 5 mg Tablet 5 mg PO QAM 30 Days Qty: 30 0RF Entresto 24-26 mg Tablet 1 tab PO BID 30 Days Qty: 60 0RF Referrals: Jean Kaur MD [Physician] - No Primary/Family,Physician [Primary Care Provider] - Patient/Caregiver Discharge Instructions Discharge Activity: resume usual activities Education Materials: Heart Failure: Evaluating Your Heart Print Language: Paraguayan Stand Alone Forms: Ellie Award Info., Patient Portal Info Letter, Work/Release Restrictions Discharge Order Discharge Orders: Discharge (Routine); Ordered 09/23/24 Ordered By: Oleksandr Blanco Quality Discharge Quality Measures VTE prophylaxis
[2024-09-23] MEDS: LORazepam 0.5 MG TABLET PO (12:06)
--- NOTE | 2024-09-23 15:30 | PC.SS ---
Late Entry Mihir Ellis is 59 year old male admitted to [facility] for CHF Exacerbation. SS conducted bedside contact with the patient to complete initial assessment and to discuss discharge planning.? SW used all precautionary measures to complete initial. Role and reason for the contact was explained to Mihir. Pt is alert and oriented times 4. Patient confirmed demographic information and confirmed address. Pt has been residing at [facility] for the past week and plans to return there upon discharge. Patient identifies Juan C Ellis, father, as his surrogate decision maker. Pt states prior to hospitalization he is able to complete most ADL?s independently. Pt does not use DME equiptment and asked if he could get a wheelchair, SS stated that it is unlikely due to he is mobile. Pt states he uses O2 at his parents home; but when assessment completed pt was not using O2. Pt will reach out to his parents for the O2 to be taken to [facility]. Pt confirmed no history of mental health. Pt has hx of substance abuse and why he is at [facility]. Pts PCP is [facility]. Pharmacy of choice is [facility]. Discharge options discussed and the pt return to [facility]. ?[facility] representatives will provide transportation upon DC. No further intervention required at this time, social media director would be available to address any further concerns. DC Plan: [facility] ? Contact: Juan C Ellis, , Address: Confirmed on face sheet PCP: [facility]on
== END 2024-09-23 13:39 | disposition home or self-care (01) ==
LOC: SERX 08:04 → SERHOLD 08:28 → S3NX 09-23 11:20 → S3SX 09-25 09:27 → SERHOLD 09-25 09:27
PROVIDERS: Physician Assistant; Admitting Provider Internal Medicine; Emergency Provider Family Medicine; PCP Student in an Organized Health Care Education/Training Program
DX: I11.0 Hypertensive heart disease with heart failure (principal); E11.9 Type 2 diabetes mellitus without complications; E78.5 Hyperlipidemia, unspecified; F14.10 Cocaine abuse, uncomplicated; F15.10 Other stimulant abuse, uncomplicated; F41.9 Anxiety disorder, unspecified; I25.10 Atherosclerotic heart disease of native coronary artery without angina pectoris; I30.9 Acute pericarditis, unspecified; I42.0 Dilated cardiomyopathy; I50.9 Heart failure, unspecified; T46.5X6A Underdosing of other antihypertensive drugs, initial encounter; Z82.49 Family history of ischemic heart disease and other diseases of the circulatory system; Z83.3 Family history of diabetes mellitus; Z87.891 Personal history of nicotine dependence; Z91.148 Patient's other noncompliance with medication regimen for other reason; Z95.5 Presence of coronary angioplasty implant and graft; Z01.810 Encounter for preprocedural cardiovascular examination
CPT/HCPCS: 36415; 71045; 80053; 80061; 80307; 83036; 83735; 83880; 84100; 84439; 84443; 84484; 85025; 85610; 85730; 87400; 87811; 93005; 93306; 96372; 96374; 96376; 99291; G0378; J1644; J1938; J2060; J3475; J8499; A9270

== ENCOUNTER 2024-09-24 20:53 | Emergency (ER) | payer MEDICAID, SELFPAY ==
--- NOTE | 2024-09-24 22:10 | PD.EDSOB ---
ED SOB =RME/HPI General Chief Complaint: Shortness of Breath/Dyspnea Stated Complaint: DIFFICULTY BREATHING CHF HX OF Arrival date/time: 09/24/24 20:53 RME / HPI RME / HPI Narrative: This section includes all my notes and documentations, including HPI, PE, and ED course. Jose Jose MD HPI: 59yo male with a history of CAD s/p stent placement, HTN, CHF, HLD presents to the ED with continued shortness of breath. Was discharged from this facility yesterday, but states his shortness of breath has not resolved. Patient denies any chest pain, fever, chills, nausea, vomiting or any other associated symptoms. Did not take Lasix today. No other complaints reported. ROS: All negative except as documented in HPI. Physical Exam: General: Alert and oriented. No acute distress when remaining still. Eyes: Conjunctivae and lids clear. ENT: No nasal congestion. Neck: Supple. Heart: RRR. Lungs: No respiratory distress. Mildly decreased air movement with bilateral rales. Abdomen: Soft and nontender. Normal bowel sounds. No distension. No rebound or guarding. Back: No CVA tenderness. Skin: Warm and dry. Neuro: Alert and oriented X 3. I reviewed all diagnostic test results. My interpretation of the EKG is sinus rhythm with nonspecific ST-T changes. My interpretation of the chest x-ray is mild increased vascular congestion. Blood tests show Creatinine 1.4, BUN 39, Troponin 0.046, BNP 1562, TSH 8.53. Stable troponin level. BMP improved. At this point, diagnoses include stable congestive heart failure. Treatment here included Lasix. Significant improvement noted. Recommended outpatient treatment. No criteria for hospitalization. Based on my best medical judgment, made decision no further evaluation or treatment indicated at this time. Patient understands and agrees to the discharge instructions customized and printed, see below. Discharge Instructions from Dr. Jose printed for you: 1. After extensive evaluation, there is no immediately life-threatening condition. Such as heart attack or pulmonary embolism (blood clots in your lungs). 2. As you know, your symptoms are due to congestive heart failure (CHF). There is no criteria for hospitalization. 3. Follow all the instructions given to you when you were discharged from the hospital yesterday. Including taking all the instructed medications, including Lasix (furosemide). atorvastatin 20 mg Tablet 40 mg PO HS 30 Days Qty: 60 0RF aspirin [Ecotrin Low Strength] 81 mg Tablet,Delayed Release (Dr/Ec) 81 mg PO QDAY 30 Days Qty: 30 0RF furosemide 40 mg Tablet 40 mg PO QDAY 30 Days Qty: 30 0RF carvedilol 3.125 mg Tablet 3.125 mg PO BIDWM 30 Days Qty: 30 0RF dapagliflozin propanediol 5 mg Tablet 5 mg PO QAM 30 Days Qty: 30 0RF Entresto 24-26 mg Tablet 1 tab PO BID 30 Days Qty: 60 0RF 4. See a private doctor on 09/25/2024 for recheck and further care. Ask to review all test results and official radiology reports, to make sure you receive all necessary follow-ups and monitoring. 5. Try to drink only 4 cups of fluid daily. 6. When resting or sitting or sleeping, raise head of bed. And elevate your feet/ankles above your waist level. 7. Seek immediate medical care with worsening or with any concerns. Jose Jose MD Related Data Previous Rx's ?Medication ?Instructions ?Recorded aspirin 81 mg tablet,delayed 81 mg PO QDAY 30 days #30 tabs 09/23/24 release (Ecotrin Low Strength) atorvastatin 20 mg tablet 40 mg (2 x 20 mg) PO HS 30 days 09/23/24 #60 tabs carvedilol 3.125 mg tablet 3.125 mg PO BIDWM 30 days #30 tabs 09/23/24 dapagliflozin propanediol 5 mg 5 mg PO QAM 30 days #30 tabs 09/23/24 tablet furosemide 40 mg tablet 40 mg PO QDAY 30 days #30 tabs 09/23/24 sacubitril 24 mg-valsartan 26 mg 1 tab PO BID 30 days #60 tabs 09/23/24 tablet (Entresto) Allergies Allergy/AdvReac Type Severity Reaction Status Date / Time Penicillins Allergy Severe Abdominal Verified 09/24/24 20:59 Pain Review of Systems Review of Systems Systems Reviewed: All systems reviewed, normal except as documented ED Exam Narrative Physical exam: As noted in HPI. Course Course Course Narrative: CXR is ordered for determining the etiology of shortness of breath. Quality Measures none Orders Category Date Time Status EKG (ED ONLY) *Do not use* NOW Care 09/24/24 22:24 Completed EKG (ED Only) Stat Exams 09/24/24 22:24 Draft XR chest 1V portable Stat Exams 09/24/24 22:25 Completed BNP [B-Type Natriuretic Peptide] Stat Lab 09/24/24 22:39 Completed Bilirubin,Direct Stat Lab 09/24/24 22:39 Completed CBC Stat Lab 09/24/24 22:39 Completed CMP [Comprehensive Metabolic Panel] Stat Lab 09/24/24 22:39 Completed D-Dimer Stat Lab 09/24/24 22:39 Completed Free T4 (Free Thyroxine) Stat Lab 09/24/24 22:39 Completed Magnesium Stat Lab 09/24/24 22:39 Completed TSH [Thyroid Stimulating Hormone] Stat Lab 09/24/24 22:39 Completed Troponin I Stat Lab 09/24/24 22:39 Completed Furosemide [Lasix] Med 09/24/24 22:24 Discontinued 40 mg PO X1 ONE Vital Signs Vital signs: Vital Signs Pulse Rate 96 09/24/24 22:19 Respiratory Rate 18 09/24/24 22:19 Blood Pressure 116/85 H 09/24/24 22:19 Pulse Oximetry (%) 96 09/24/24 22:19 Oxygen Delivery Method Room Air 09/24/24 22:19 Shortness of Breath / Dyspnea MDM Narrative MDM Narrative:: 59yo male with a history of CAD s/p stent placement, HTN, CHF, HLD presents to the ED for a chief complaint of shortness of breath. Patient states he was discharged from this facility yesterday, but states his shortness of breath has not resolved and has gotten worse. Patient denies any chest pain, fever, chills, nausea, vomiting or any other associated symptoms. No other complaints reported. Patient data External records reviewed:: [facility] previous records (Per chart review, patient was admitted here on 09/21/24 for acute CHF.) Clinical information provided by:: patient Social determinants that could affect healthcare access:: substance use (history of methamphetamine, cocaine, and marijuana use) Patient has the following chronic illnesses:: CAD s/p stent placement, HTN, CHF, HLD How is presenting disease/condition affected by chronic disease/condition?: exacerbated by Evaluation data The following diagnostics were reviewed and interpreted by me:: lab results, radiology exam(s) and EKG tracing(s) (My interpretation of the EKG is: Sinus rhythm (104 bpm) with nonspecific ST-T changes. No change from 09/21/2024 EKG. Jose Jose MD) Lab and/or radiology exams considered but not ordered:: none Interpretation Summary: I reviewed all diagnostic test results. My interpretation of the EKG is sinus rhythm with nonspecific ST-T changes. My interpretation of the chest x-ray is mild vascular congestion. Blood tests show Creatinine 1.4, BUN 39, Troponin 0.046, BNP 1562, TSH 8.53. Troponin stable. BMP improved. Medications / Prescriptions Medications or Prescriptions considered but not ordered:: none Medication administrations:: Medication Administration History Discontinued Medications Furosemide (Furosemide 40 Mg Tablet) 40 mg PO X1 ONE Stop: 09/24/24 22:25 Last Admin: 09/24/24 22:43 Dose: 40 mg Documented By: CHLOE Rossi Consultations Consultation(s) initiated? (list below): No Diagnosis Shortness of Breath Differential Diagnosis: acute exacerbation of chronic obstructive airways disease, congestive heart failure, community acquired pneumonia, asthma with exacerbation and pulmonary embolism Most likely diagnosis given after review of the tests above:: Congestive heart failure Admission Indicated Admission indicated?: not indicated Explain why admission is indicated or not indicated:: With stable CHF, there was no indication for admission. Admission Request Was there a request for admission?: No Disposition Plan Disposition Plan: Discharge Discharge Attestation Discharge Attestation: The patient and all family members were given an opportunity to ask questions and understood the discharge instructions. Discharge instructions specifically effects, indications for sooner follow up or return to the emergency department, and the expected course of current diagnosis. Patient condition: Stable Discharge Plan Plan Patient Disposition: HOME (Self Care) Prescriptions/Referrals Prescriptions/Med Rec: No Action atorvastatin 20 mg Tablet 40 mg PO HS 30 Days Qty: 60 0RF aspirin [Ecotrin Low Strength] 81 mg Tablet,Delayed Release (Dr/Ec) 81 mg PO QDAY 30 Days Qty: 30 0RF furosemide 40 mg Tablet 40 mg PO QDAY 30 Days Qty: 30 0RF carvedilol 3.125 mg Tablet 3.125 mg PO BIDWM 30 Days Qty: 30 0RF dapagliflozin propanediol 5 mg Tablet 5 mg PO QAM 30 Days Qty: 30 0RF Entresto 24-26 mg Tablet 1 tab PO BID 30 Days Qty: 60 0RF Referrals: Jamir Downs MD [Primary Care Provider] - In 1 week Problem List Clinical Impression: Congestive heart failure Patient/Caregiver Discharge Instructions Discharge Activity: activity as tolerated Education Materials: ED CHF Left Side Additional Instructions: Discharge Instructions from Dr. Jose printed for you: 1. After extensive evaluation, there is no immediately life-threatening condition. Such as heart attack or pulmonary embolism (blood clots in your lungs). 2. As you know, your symptoms are due to congestive heart failure (CHF). There is no criteria for hospitalization. 3. Follow all the instructions given to you when you were discharged from the hospital yesterday. Including taking all the instructed medications, including Lasix (furosemide). atorvastatin 20 mg Tablet 40 mg PO HS 30 Days Qty: 60 0RF aspirin [Ecotrin Low Strength] 81 mg Tablet,Delayed Release (Dr/Ec) 81 mg PO QDAY 30 Days Qty: 30 0RF furosemide 40 mg Tablet 40 mg PO QDAY 30 Days Qty: 30 0RF carvedilol 3.125 mg Tablet 3.125 mg PO BIDWM 30 Days Qty: 30 0RF dapagliflozin propanediol 5 mg Tablet 5 mg PO QAM 30 Days Qty: 30 0RF Entresto 24-26 mg Tablet 1 tab PO BID 30 Days Qty: 60 0RF 4. See a private doctor on 09/25/2024 for recheck and further care. Ask to review all test results and official radiology reports, to make sure you receive all necessary follow-ups and monitoring. 5. Try to drink only 4 cups of fluid daily. 6. When resting or sitting or sleeping, raise head of bed. And elevate your feet/ankles above your waist level. 7. Seek immediate medical care with worsening or with any concerns. Print Language: Nepali Stand Alone Forms: Ellie Award Info., Patient Portal Info Letter
[2024-09-24 22:19] VITALS: BP 116/85; PULSE 96; RESP 18; O2SAT 96
--- NOTE | 2024-09-24 22:24 | EKG_ITS ---
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
--- NOTE | 2024-09-24 22:25 | XR_ITS ---
Examination: PA chest single view TECHNIQUE: upright PA chest single view Date and time: September 24, 2024 10:55 PM Comparison September 21, 2024 INDICATIONS: Shortness of breath today. FINDINGS: Mild enlargement cardiac contour Moderate vascular congestion No lumbar pneumonia Intact osseous structures IMPRESSION: Mild heart failure
[2024-09-24 22:43] VITALS: BP 116/85; PULSE 96
[2024-09-24] MEDS: Furosemide 40 MG TABLET PO (22:43)
[2024-09-24 22:51] LABS: Basophils # (Auto) 0.1 Thou/mm3 (0.0-0.2); Basophils % (Auto) 1 % (0-2.5); Eosinophils # (Auto) 0.3 Thou/mm3 (0.0-0.5); Eosinophils % (Auto) 3 % (0-10); Hematocrit 44.9 % (41.0-53.0); Hemoglobin 14.9 g/dL (13.5-16.0); Immature Granulocytes % (Auto) 0 % (0-0); Immature Granulocytes Auto 0.03 Thou/mm3 (0.00-0.00); Lymphocytes # (Auto) 2.7 Thou/mm3 (1.0-4.8); Lymphocytes % (Auto) 28 % (10-50); Mean Corpuscular HGB Conc 33.2 g/dl (31.0-37.0); Mean Corpuscular Hemoglobin 27.4 pg (25.0-35.0); Mean Corpuscular Volume 83 fL (80-100); Monocytes # (Auto) 0.9 Thou/mm3 (0.0-0.8); Monocytes % (Auto) 10 % (0-12); Neutrophils # (Auto) 5.4 Thou/mm3 (1.8-7.7); Neutrophils % (Auto) 58 % (37-80); Nucleated Red Blood Cell % 0 /100 WBC (0); Platelet Count 342 Thou/mm3 (140-440); RDW Standard Deviation 58.4 fL (35.1-43.9); Red Blood Count 5.44 Miln/mm3 (4.50-5.90); White Blood Count 9.4 Thou/mm3 (3.8-10.6)
[2024-09-24 23:12] LABS: B-Type Natriuretic Peptide 1562 pg/mL (0-100)
[2024-09-24 23:16] LABS: Alanine Aminotransferase 29 U/L (10-49); Albumin, Serum 4.2 gm/dL (3.5-5.0); Albumin/Globulin Ratio 1.5 (1.2-2.2); Alkaline Phosphatase 130 U/L (46-116); Anion Gap 11 (7-16); Aspartate Amino Transferase 27 U/L (0-34); BUN/Creatinine Ratio 28 Ratio (12-20); Bilirubin,Direct 0.1 mg/dL (0.0-0.3); Bilirubin,Total 0.4 mg/dL (0.3-1.2); Blood Urea Nitrogen 39 mg/dL (9-23); Calcium 9.8 mg/dL (8.3-10.6); Calcium (Corrected) 9.8 mg/dL (8.5-10.1); Carbon Dioxide 24.5 mMol/L (20.0-31.0); Chloride 103 mMol/L (98-107); Creatinine (Component) 1.4 mg/dL (0.6-1.3); Estimated Creatinine Clearance 41.1 mL/min (>60); Free T4 (Free Thyroxine) 1.02 ng/dL (0.89-1.76); Globulin 2.8 gm/dL (2.3-3.5); Glucose 97 mg/dL (74-106); Magnesium 2.3 mg/dL (1.6-2.6); Osmolality,Calculated 285 (275-295); Potassium 4.6 mMol/L (3.4-5.1); Sodium 138 mMol/L (136-145); Thyroid Stimulating Hormone 8.53 uIU/mL (0.55-4.78); eGFR 59 See Note
[2024-09-24 23:18] LABS: Troponin I 0.046 ng/mL (0.0-0.045)
[2024-09-24 23:21] LABS: D-Dimer < 250 ng/mL (<600)
== END 2024-09-24 23:55 | disposition home or self-care (01) ==
PROVIDERS: Emergency Provider Emergency Medicine; PCP Family Medicine
DX: I11.0 Hypertensive heart disease with heart failure (principal); I50.9 Heart failure, unspecified; R00.0 Tachycardia, unspecified; I25.10 Atherosclerotic heart disease of native coronary artery without angina pectoris; E78.5 Hyperlipidemia, unspecified; Z95.5 Presence of coronary angioplasty implant and graft
CPT/HCPCS: 36415; 71045; 80053; 82248; 83735; 83880; 84439; 84443; 84484; 85025; 85379; 93005; 99283; A9270

== ENCOUNTER 2024-09-28 14:20 | Outpatient (AMB) | payer MEDICAID, SELFPAY ==
[2024-09-28 14:36] VITALS: BP 131/94; PULSE 118; RESP 18; TEMP 36.7; O2SAT 98; BMI 19.8
--- NOTE | 2024-09-28 14:36 | PD.RESCLINIC ---
Vital Signs 09/28/24 14:36 Height 1.83 m Height Method Stated Weight 66.224 kg Weight Measurement Method Standing Scale BMI 19.8 BP 131/94 H Blood Pressure Source Automatic Cuff Blood Pressure Location Right Upper Arm Position Sitting Respiration 18 Pulse 118 H Pulse Source Monitor Temp 98.1 F Temp Source Temporal Artery Scan Pulse Oximetry (%) 98 Oxygen Delivery Method Room Air Allergies/Meds Allergies & Medications Allergies Penicillins Allergy (Severe, Verified 09/28/24 14:37) Abdominal Pain Medication Reconciliation aspirin 81 mg tablet,delayed release (Ecotrin Low Strength) 81 mg PO QDAY 30 days #30 tabs 09/28/24 [Rx] atorvastatin 20 mg tablet 40 mg (2 x 20 mg) PO HS 30 days #60 tabs 09/28/24 [Rx] carvedilol 3.125 mg tablet 3.125 mg PO BIDWM 30 days #30 tabs 09/28/24 [Rx] dapagliflozin propanediol 5 mg tablet 5 mg PO QAM 30 days #30 tabs 09/28/24 [Rx] furosemide 20 mg tablet 20 mg PO QPM 1 month #30 tabs 09/28/24 [Rx] furosemide 40 mg tablet 40 mg PO QDAY 30 days #30 tabs 09/28/24 [Rx] lidocaine 5 % topical patch 1 patch topical QDAY PRN back pain #30 ea 09/28/24 [Rx] melatonin 1 mg-magnesium citrate 71.5 mg tablet,delayed release 1 tab PO HS 1 month #30 tabs 09/28/24 [Rx] potassium chloride 10 mEq capsule,extended release 10 meq PO QDAY #30 caps 09/28/24 [Rx] sacubitril 24 mg-valsartan 26 mg tablet (Entresto) 1 tab PO BID 30 days #60 tabs 09/28/24 [Rx] MA Intake Visit Data Collection New Patient or Established: Established Patient (seen at [facility] within 3 years) Seen by Clinical Staff ONLY (RN/MA): No Reason for Visit:: FOLLOW UP Pain Present Currently: Yes Pain Location: Back Pain scale:: 5 Pain Scale Used: BrandonAngeloMariee/Numerical Guzzler Builder Required: No PCP or OBGYN visit in last 3 months: Yes Date of Last PCP or OBGYN visit: 09/24/24 Do You Feel Safe at Home: Yes Authorities Contacted: N/A Smoking Status Smoking Status: Former smoker Immunization / Flu Flu Vaccine in the Last 12 Months: No Flu Vaccine Exclusion Criteria: Refused by Patient Past Medical History Past Medical History CARDIAC: Positive Congestive Heart Failure and Hypertension RESPIRATORY: Negative Chronic Obstructive Pulmonary Disease (COPD) GENITOURINARY: Negative Renal Disease ENDOCRINE: Negative Diabetes Mellitus Type 1 or Diabetes Mellitus Type 2 Social History SMOKING STATUS: Smoking status: Former smoker ALCOHOL FREQUENCY: Alcohol Intake Frequency: 3 or More Drinks per Day HOUSING: Housing: [facility] LIVES WITH: Lives With: Staff-Care Providers Patient Portal Questionaires PHQ-9 PHQ-2 Over the last 2 weeks, how often have you been bothered by any of the following problems? 1. Little interest or pleasure in doing things: not at all 2. Feeling down, depressed, or hopeless: not at all Total score: 0 PHQ-9 3. Trouble falling or staying asleep, or sleeping too much: Not at all 4. Feeling tired or having little energy: Not at all 5. Poor appetite or overeating: Not at all 6. Feeling bad about yourself - or that you are a failure or have let yourself or your family down: Not at all 7. Trouble concentrating on things, such as reading the newspaper or watching television: Not at all 8. Moving or speaking so slowly that other people could have noticed? - Or the opposite - being so fidgety or restless that you have been moving around a lot more than usual: not at all 9. Thoughts that you would be better off or of hurting yourself in some way: Not at all Total score: 0 If you checked off any problems, how difficult have these problems made it for you to do your work, take care of things at home, or get along with other people?: not difficult at all Source: Developed by Drs. Weston Mills, Majo Copeland, Aubrey Villanueva and colleagues, with an educational edna from [employer]. Depression screen completed yes Social History Living Situation History Housing: [facility] Tobacco History Smoking Status: Former smoker Alcohol History Alcohol Intake Frequency: 3 or More Drinks per Day Substance Use History Substance Use: meth, cocaine Domestic Abuse History Do You Feel Safe at Home: Yes Review of Systems Report any current symptoms Only answer those that you have currently: Past Medical History Past Medical History Have you ever been diagnosed with any of the following: Cardiology Problems Congestive Heart Failure: Yes Hypertension: Yes Respiratory Problems Chronic Obstructive Pulmonary Disease (COPD): No Genital/Urinary Problems Renal Disease: No Endocrine Problems Diabetes Mellitus Type 1: No Diabetes Mellitus Type 2: No History of Present Illness HPI Narrative Mr Aguilar is a 59-year-old male with past medical history of coronary artery disease status post stent placement, hypertension, congestive heart failure, hyperlipidemia, substance use disorder (meth, cocaine, marijuana) presenting to the ED on 09/21 with episode of chest pain and shortness of breath will be admitted for observation of chest pain with echocardiogram ordered for CHF exacerbation and cardiology consultation. BNP of 2852 on labs. Chest x-ray showed moderate to large pericardial contour, mild CHF, prominent vascular congestion and early septal edema at the perihilar and lung bases. Per Cardio recommendations, will continue with GDMT with COREG, ENTRESTO, LASIX and FARXIGA. ECHO showed EEF 15-20%, decrease LV and RV function, dilated cardiomyopathy, diastolic dysfunction present but cannot be graded, mild-mod MR/TR. Will continue with GDMT. Recommended METH/COCAINE cessation given given ECHO findings. Mortality remains very high. Patient will need ICD however currently not a candidate given active METH use. Will need close cardiology follow-up after discharge, with repeat ECHO in 3 months. 09/28/2034: Presented for follow up at [facility] after being treated for acute decompensation of congestive heart failure in hospital. Also noted to have A1c 6.2%. He was discharged on GDMT: Lasix 40mg qD + Farxiga 5mg + Entresto 1tab BID + Coreg 3.125 BID. ECHO : Estimated LVEF 15-20%, severe RV and LV dysfunction, dilated cardiomyopathy. Severe MR and TR. He endorses remarkable improvement in heart failure symptoms, denies any shortness of breath and is able to ambulate on room air comfortably. 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 Endorses being completely clean off methamphetamine and cocaine since discharge, has a positive outlook towards life. He does complain of shortness of breath overnight intermittently, and requests additional 20 mg Lasix for nighttime. He only consumes 1-1.2 L daily. He was advised to increase fluid intake to 1.5-2 L, when taking additional 20 mg of Lasix at bedtime. He also has a 4/6 diastolic murmur, likely due to severe dilated cardiomyopathy, but currently asymptomatic. Will reevaluate in November 23 on follow-up. Lidocaine patch ordered for chronic back pain. Refills ordered for all medications. Review of Systems Review of Systems Narrative Review of Systems: GENERAL: Denies fevers/chills, diaphoresis. HEENT: Denies headache or visual/hearing changes. Denies nasal discharge. NEURO: Denies unusual weakness or difficulty speaking. CARDIO: Denies chest pain, palpitations. PULM: Nocturnal intermittent SOB, now cough, wheezing. GI: Denies abdominal pain, no N/V, no C/D. Reports having BMs URO: Denies burning/itching/pain/urinary changes. MSK/EXT/SKIN: Denies skeletal/muscle pain, changes in upper or lower extremities, itchiness, superficial skin chnages. PSYCH: Cooperative, pleasant mood & affect. The rest of the review of systems is otherwise negative. Objective/Exam Narrative Physical exam: Constitutional Alert, oriented x3 and comfortable. On RA HEENT Vision grossly intact. Patent nares. Trachea midline. Respiratory Chest normal on inspection and clear to auscultation. Cardiovascular S1 and S2 audible, RRR. 4/6 diastolic murmur, severe dilated cardiomyopathy. + JVD. Abdominal Soft and BS + ; non tender to palpation in all quadrants. Genitourinary No bladder tenderness, no flank pain. Normal to palpation. Good urine output Musculoskeletal Extremities tone within normal limits. No LE edema. Neurological CN II - XII grossly intact. Extremity motor and sensation grossly intact. Skin Warm, dry and intact. No apparent lesions. Psychiatric Patient has a good affect, is cooperative. Assessment & Plan Diagnosis / Problem List (1) Congestive heart failure: Status: Acute Assessment & Plan: - August 2024 ECHO : Estimated LVEF 15-20%, severe RV and LV dysfunction, dilated cardiomyopathy. Severe MR and TR. - He endorses remarkable improvement in heart failure symptoms, denies any shortness of breath and is able to ambulate on room air comfortably. - 4/6 diastolic murmur, likely due to severe dilated cardiomyopathy, but currently asymptomatic. - was discharged on GDMT: Lasix 40mg qD + Farxiga 5mg + Entresto 1tab BID + Coreg 3.125 BID. - complain of shortness of breath overnight intermittently, and requests additional 20 mg Lasix for nighttime Plan: - Continue GDMT - Ordered additional 20 mg of Lasix at bedtime - advised to increase fluid intake to 1.5-2 L - Refills ordered for all medications. (2) Type 2 diabetes mellitus: Status: Acute Assessment & Plan: - August 2024 A1c 6.2% - added Farxiga to GDMT Plan: - Continue Farxiga 5mg for now, will increase to 10mg - Repeat Hb A1c in November 2024 (3) Back pain: Status: Acute Assessment & Plan: chronic, refuses opiods Plan: Lidocaine patch ordered for chronic back pain. Additional Plan Follow up in October 2024 Physician Billing New Patient New Patient: E/M Level 2-CPT 73488 Office Procedures [facility] Level of Care Nursing/Assessment Patient Status: Established Patient Nursing Assessment/Reassessment: Medication Reconciliation, Update PMH in EMR and Vital Signs Coordination of Care: Complex Care and Chronic Disease 1-5, Consent,records obtained, informed consent, Education Simp Pt/Fam and Staff clarify orders Established Patient Charge Established Patient Point Assignment: 85 Established Patient Point Charge: EP Level 3 (80-115)
== END 2024-09-28 15:32 | disposition home or self-care (01) ==
LOC: HODAHC 14:20
PROVIDERS: Supervising Provider Internal Medicine; Visit Provider Student in an Organized Health Care Education/Training Program
DX: I50.9 Heart failure, unspecified (principal); I42.0 Dilated cardiomyopathy; E11.9 Type 2 diabetes mellitus without complications; Z79.84 Long term (current) use of oral hypoglycemic drugs; G89.29 Other chronic pain; M54.9 Dorsalgia, unspecified
CPT/HCPCS: 99213; G0463

== ENCOUNTER 2024-11-05 17:02 | Emergency (ER) | payer MEDICAID, SELFPAY ==
[2024-11-05 17:02] VITALS: BMI 21.7
--- NOTE | 2024-11-05 17:05 | EKG_ITS ---
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
--- NOTE | 2024-11-05 17:09 | XR_ITS ---
Examination: PA chest single view TECHNIQUE: Upright PA chest single view Date and time: November 05, 2024, 1717 hours INDICATIONS: Chest pain today FINDINGS: Comparison September 24, 2024 Mild prominence left ventricle No lobar pneumonia or pulmonary edema IMPRESSION: Mild enlargement cardiac contour No pneumonia or pulmonary edema
[2024-11-05 17:17] VITALS: BP 122/86; PULSE 93; RESP 17; TEMP 36.9; O2SAT 97
[2024-11-05] MEDS: ASPIRIN 81 MG CHEW 324 MG PO (17:33)
--- NOTE | 2024-11-05 17:35 | PD.EDRME ---
Rapid Medical Screening Exam RME Arrival date/time: 11/05/24 17:02 Chief Complaint: Chest Pain Vital signs: Vital Signs Temperature 98.5 F 11/05/24 17:17 Pulse Rate 93 11/05/24 17:17 Respiratory Rate 17 11/05/24 17:17 Blood Pressure 122/86 H 11/05/24 17:17 Pulse Oximetry (%) 97 11/05/24 17:17 Oxygen Delivery Method Room Air 11/05/24 17:17 Pulse ox is 97% room air Vital signs reviewed by provider: Yes RME Narrative: Patient was ambulating today and developed a weight like sensation to his shoulders he describes like a ton, this then became shortness of breath with chest pain. Past medical history includes cardiac issues as well as CHF.
[2024-11-05 18:26] LABS: Basophils # (Auto) 0.0 Thou/mm3 (0.0-0.2); Basophils % (Auto) 0 % (0-2.5); Eosinophils # (Auto) 0.3 Thou/mm3 (0.0-0.5); Eosinophils % (Auto) 4 % (0-10); Hematocrit 44.6 % (41.0-53.0); Hemoglobin 15.0 g/dL (13.5-16.0); Immature Granulocytes Auto 0.02 Thou/mm3 (0.00-0.00); Lymphocytes # (Auto) 2.7 Thou/mm3 (1.0-4.8); Lymphocytes % (Auto) 39 % (10-50); Mean Corpuscular HGB Conc 33.6 g/dl (31.0-37.0); Mean Corpuscular Hemoglobin 28.2 pg (25.0-35.0); Mean Corpuscular Volume 84 fL (80-100); Monocytes # (Auto) 0.7 Thou/mm3 (0.0-0.8); Monocytes % (Auto) 10 % (0-12); Neutrophils # (Auto) 3.3 Thou/mm3 (1.8-7.7); Neutrophils % (Auto) 47 % (37-80); Nucleated Red Blood Cell # 0.00 Thou/mm3 (0.00-0.00); Nucleated Red Blood Cell % 0 /100 WBC (0); Platelet Count 151 Thou/mm3 (140-440); RDW Standard Deviation 56.4 fL (35.1-43.9); Red Blood Count 5.32 Miln/mm3 (4.50-5.90); White Blood Count 6.9 Thou/mm3 (3.8-10.6)
[2024-11-05 18:47] LABS: INR 1.0 (0.9-1.3); Partial Thromboplastin Time 26.8 Seconds (22.0-36.0); Prothrombin Time 10.9 Seconds (9.0-12.2)
[2024-11-05 18:49] LABS: Alanine Aminotransferase 47 U/L (10-49); Albumin, Serum 4.6 gm/dL (3.5-5.0); Albumin/Globulin Ratio 1.6 (1.2-2.2); Alkaline Phosphatase 66 U/L (46-116); Anion Gap 11 (7-16); Aspartate Amino Transferase 35 U/L (0-34); BUN/Creatinine Ratio 34 Ratio (12-20); Bilirubin,Total 0.4 mg/dL (0.3-1.2); Blood Urea Nitrogen 41 mg/dL (9-23); Calcium 9.8 mg/dL (8.3-10.6); Calcium (Corrected) 9.8 mg/dL (8.5-10.1); Carbon Dioxide 23.3 mMol/L (20.0-31.0); Chloride 107 mMol/L (98-107); Creatinine (Component) 1.2 mg/dL (0.6-1.3); Estimated Creatinine Clearance 69.7 mL/min (>60); Globulin 2.9 gm/dL (2.3-3.5); Glucose 120 mg/dL (74-106); Osmolality,Calculated 292 (275-295); Potassium 4.0 mMol/L (3.4-5.1); Sodium 141 mMol/L (136-145); Total Protein 7.5 gm/dL (5.7-8.2); Troponin I 0.038 ng/mL (0.0-0.045); eGFR > 60 See Note
--- NOTE | 2024-11-05 23:04 | PD.EDCHEST ---
ED Chest Pain RME/HPI General Chief Complaint: Chest Pain Stated Complaint: CHEST PAIN AT 1640 Time Seen by Provider: 11/05/24 19:02 Arrival date/time: 11/05/24 17:02 RME / HPI RME / HPI narrative: Patient was ambulating today and developed a weight like sensation to his shoulders he describes like a ton, this then became shortness of breath with chest pain. Past medical history includes cardiac issues as well as CHF. -------- This section includes all my notes and documentations, including HPI, PE, and ED course. Jose Jose MD HPI: 59yo male with a history of CAD s/p stents, HTN, HLD, substance use disorder here with left chest/shoulder pain that started several hours ago. Was helping in the kitchen cleaning in his rehabilitation facility when the pain started. Currently, the pain is minimal. No other complaints. ROS: All negative except as documented in HPI. Physical Exam: General: Alert and oriented. No acute distress when remaining still. Eyes: Conjunctivae and lids clear. ENT: No nasal congestion. Neck: Supple. Heart: RRR. Lungs: No respiratory distress. Good air movement. No rhonchi, wheezing, rales. Chest: Palpation near the left shoulder reproduces his pain. Skin: Warm and dry. Neuro: Alert and oriented X 3. I reviewed all diagnostic test results. My interpretation of the EKG is sinus rhythm with no acute ST?T changes. My interpretation of the chest x-ray is NAD. Blood tests are unremarkable, including negative troponin. At this point, diagnoses include chest pain, probably musculoskeletal. 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 Based on my best medical judgment, made decision no further evaluation or treatment indicated at this time. Patient understands and agrees to the discharge instructions customized and printed, see below. Discharge instructions from Dr. Jose: 1. After extensive evaluation, there is no life-threatening condition. Such as heart attack. 2. Your pain can be originating from the chest wall and shoulder and not from an internal organ. 3. Apply ice or heat if helpful. Tylenol/ibuprofen as needed. If your chest pain returns. 4. 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 5. Seek immediate medical care with worsening or with any concerns. Jose Jose MD Related Data Previous Rx's ?Medication ?Instructions ?Recorded aspirin 81 mg tablet,delayed 81 mg PO QDAY 30 days #30 tabs 09/28/24 release (Ecotrin Low Strength) atorvastatin 20 mg tablet 40 mg (2 x 20 mg) PO HS 30 days 09/28/24 #60 tabs carvedilol 3.125 mg tablet 3.125 mg PO BIDWM 30 days #30 tabs 09/28/24 dapagliflozin propanediol 5 mg 5 mg PO QAM 30 days #30 tabs 09/28/24 tablet furosemide 40 mg tablet 40 mg PO QDAY 30 days #30 tabs 09/28/24 lidocaine 5 % topical patch 1 patch topical QDAY PRN back pain 09/28/24 #30 ea melatonin 1 mg-magnesium citrate 1 tab PO HS 1 month #30 tabs 09/28/24 71.5 mg tablet,delayed release potassium chloride 10 mEq 10 meq PO QDAY #30 caps 09/28/24 capsule,extended release sacubitril 24 mg-valsartan 26 mg 1 tab PO BID 30 days #60 tabs 09/28/24 tablet (Entresto) furosemide 10 mg/mL oral solution 20 mg (2 mL) PO QPM #60 mL 10/01/24 furosemide 20 mg tablet 20 mg PO QPM 1 month #30 tabs 10/01/24 Allergies Allergy/AdvReac Type Severity Reaction Status Date / Time Penicillins Allergy Severe Abdominal Verified 11/05/24 17:04 Pain Review of Systems Review of Systems Systems Reviewed: All systems reviewed, normal except as documented ED Exam Narrative Physical exam: As noted in HPI. Course Course Course Narrative: CXR is ordered for determining the etiology of chest pain. Quality Measures none Orders Category Date Time Status EKG (ED ONLY) *Do not use* NOW Care 11/05/24 17:05 Completed EKG (ED Only) Stat Exams 11/05/24 17:05 Draft XR chest 2V Stat Exams 11/05/24 17:09 Completed CBC Stat Lab 11/05/24 18:11 Completed Comprehensive Metabolic Panel Stat Lab 11/05/24 18:11 Completed Partial Thromboplastin Time Stat Lab 11/05/24 18:11 Completed Prothrombin Time with INR Stat Lab 11/05/24 18:11 Completed Troponin I Stat Lab 11/05/24 18:11 Completed Aspirin Chew Med 11/05/24 17:08 Discontinued 324 mg PO X1 ONE Vital Signs Vital signs: Vital Signs Temperature 98.5 F 11/05/24 17:17 Pulse Rate 93 11/05/24 17:17 Respiratory Rate 17 11/05/24 17:17 Blood Pressure 122/86 H 11/05/24 17:17 Pulse Oximetry (%) 97 11/05/24 17:17 Oxygen Delivery Method Room Air 11/05/24 17:17 Chest Pain MDM Narrative MDM Narrative:: 59yo male with a history of CAD s/p stents, HTN, HLD, substance use disorder here with left chest/shoulder pain that started several hours ago. Was helping in the kitchen cleaning in his rehabilitation facility when the pain started. Currently, the pain is minimal. No other complaints. Patient data External records reviewed:: [facility] previous records (Per chart review, patient was seen here on 09/24/24 for CHF.) Clinical information provided by:: patient Social determinants that could affect healthcare access:: none Patient has the following chronic illnesses:: CAD s/p stents, HTN, HLD, substance use disorder How is presenting disease/condition affected by chronic disease/condition?: uneffected by Evaluation data The following diagnostics were reviewed and interpreted by me:: lab results, radiology exam(s) and EKG tracing(s) Lab and/or radiology exams considered but not ordered:: none Interpretation Summary: I reviewed all diagnostic test results. My interpretation of the EKG is sinus rhythm with no acute ST?T changes. My interpretation of the chest x-ray is NAD. Blood tests are unremarkable, including negative troponin. Medications / Prescriptions Medications or Prescriptions considered but not ordered:: none Medication administrations:: Medication Administration History Discontinued Medications Aspirin (Aspirin 81 Mg Chew) 324 mg PO X1 ONE Stop: 11/05/24 17:09 Last Admin: 11/05/24 17:33 Dose: 324 mg Documented By: KF Aspirin Consultations Consultation(s) initiated? (list below): No Diagnosis Chest Pain Differential Diagnosis: stable angina, unstable angina pectoris, atypical chest pain, st elevation myocardial infarction, costochondritis and other (Anxiety) Most likely diagnosis given after review of the tests above:: Chest pain, probably musculoskeletal. Admission Indicated Admission indicated?: not indicated Explain why admission is indicated or not indicated:: With no condition needing emergent intervention, there was no indication for admission. Admission Request Was there a request for admission?: No Disposition Plan Disposition Plan: Discharge Discharge Attestation Discharge Attestation: The patient and all family members were given an opportunity to ask questions and understood the discharge instructions. Discharge instructions specifically effects, indications for sooner follow up or return to the emergency department, and the expected course of current diagnosis. Patient condition: Stable Discharge Plan Plan Patient Disposition: HOME (Self Care) Prescriptions/Referrals Prescriptions/Med Rec: No Action potassium chloride 10 mEq capsule, extended release 10 meq PO QDAY Qty: 30 1RF melatonin-magnesium citrate 1-71.5 mg tablet,delayed release (DR/EC) 1 tab PO HS 30 Days Qty: 30 1RF lidocaine 5 % adhesive patch,medicated 1 patch topical QDAY PRN (Reason: back pain) Qty: 30 0RF Rx Instructions: leave on most painful area for up to 12 hrs carvedilol 3.125 mg tablet 3.125 mg PO BIDWM 30 Days Qty: 30 1RF dapagliflozin propanediol 5 mg tablet 5 mg PO QAM 30 Days Qty: 30 1RF aspirin [Ecotrin Low Strength] 81 mg tablet,delayed release (DR/EC) 81 mg PO QDAY 30 Days Qty: 30 1RF atorvastatin 20 mg tablet 40 mg PO HS 30 Days Qty: 60 1RF furosemide 40 mg tablet 40 mg PO QDAY 30 Days Qty: 30 1RF Entresto 24-26 mg tablet 1 tab PO BID 30 Days Qty: 60 1RF furosemide 20 mg tablet 20 mg PO QPM 30 Days Qty: 30 1RF furosemide 10 mg/mL solution 20 mg PO QPM Qty: 60 1RF Rx Instructions: Please cancel 20 mg tablets. Continue 40 mg tablets Referrals: No Primary/Family,Physician [Primary Care Provider] - In 1 week Problem List Clinical Impression: Chest pain Patient/Caregiver Discharge Instructions Discharge Activity: activity as tolerated Education Materials: ED Chest Pain, Uncertain Cause Additional Instructions: Discharge instructions from Dr. Jose: 1. After extensive evaluation, there is no life-threatening condition.? Such as heart attack. 2. Your pain can be originating from the chest wall and shoulder and not from an internal organ.? 3. Apply ice or heat if helpful.? Tylenol/ibuprofen as needed. If your chest pain returns. 4. 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 5. Seek immediate medical care with worsening or with any concerns.?? Print Language: Azeri Stand Alone Forms: Ellie Award Info., Patient Portal Info Letter
[2024-11-05 23:11] VITALS: BP 128/88; PULSE 89; RESP 18; TEMP 36.6; O2SAT 98
== END 2024-11-05 23:13 | disposition home or self-care (01) ==
PROVIDERS: Emergency Provider Emergency Medicine
DX: R07.9 Chest pain, unspecified (principal); R94.31 Abnormal electrocardiogram [ECG] [EKG]; I25.10 Atherosclerotic heart disease of native coronary artery without angina pectoris; E78.5 Hyperlipidemia, unspecified; Z95.5 Presence of coronary angioplasty implant and graft; I11.0 Hypertensive heart disease with heart failure; I50.9 Heart failure, unspecified
CPT/HCPCS: 36415; 71046; 80053; 84484; 85025; 85610; 85730; 93005; 99283; A9270

== ENCOUNTER 2024-11-13 11:05 | Outpatient (AMB) | payer MEDICAID, SELFPAY ==
[2024-11-13 11:53] VITALS: BP 103/67; PULSE 91; RESP 18; TEMP 35.7; O2SAT 95; BMI 21.4
--- NOTE | 2024-11-13 11:53 | ACNOTE_ITS ---
Vital Signs 11/13/24 11:53 Height 1.83 m Height Method Stated Weight 71.724 kg Weight Measurement Method Standing Scale BMI 21.4 BP 103/67 Blood Pressure Source Automatic Cuff Blood Pressure Location Right Upper Arm Position Sitting Respiration 18 Pulse 91 Pulse Source Monitor Temp 96.3 F L Temp Source Temporal Artery Scan Pulse Oximetry (%) 95 Oxygen Delivery Method Room Air Allergies/Meds Allergies & Medications Allergies Penicillins Allergy (Severe, Verified 11/13/24 11:55) Abdominal Pain Medication Reconciliation aspirin 81 mg tablet,delayed release (Ecotrin Low Strength) 81 mg PO QDAY 30 days #30 tabs 09/28/24 [Rx Confirmed 11/13/24] atorvastatin 20 mg tablet 40 mg (2 x 20 mg) PO HS 30 days #60 tabs 09/28/24 [Rx Confirmed 11/13/24] carvedilol 3.125 mg tablet 3.125 mg PO BIDWM 30 days #30 tabs 09/28/24 [Rx Confirmed 11/13/24] dapagliflozin propanediol 5 mg tablet 5 mg PO QAM 30 days #30 tabs 09/28/24 [Rx Confirmed 11/13/24] furosemide 40 mg tablet 40 mg PO QDAY 30 days #30 tabs 09/28/24 [Rx Confirmed 11/13/24] lidocaine 5 % topical patch 1 patch topical QDAY PRN back pain #30 ea 09/28/24 [Rx Confirmed 11/13/24] melatonin 1 mg-magnesium citrate 71.5 mg tablet,delayed release 1 tab PO HS 1 month #30 tabs 09/28/24 [Rx Confirmed 11/13/24] potassium chloride 10 mEq capsule,extended release 10 meq PO QDAY #30 caps 09/28/24 [Rx Confirmed 11/13/24] sacubitril 24 mg-valsartan 26 mg tablet (Entresto) 1 tab PO BID 30 days #60 tabs 09/28/24 [Rx Confirmed 11/13/24] furosemide 10 mg/mL oral solution 20 mg (2 mL) PO QPM #60 mL 10/01/24 [Rx Confirmed 11/13/24] furosemide 20 mg tablet 20 mg PO QPM 1 month #30 tabs 10/01/24 [Rx Confirmed 11/13/24] MA Intake Visit Data Collection New Patient or Established: Established Patient (seen at [facility] within 3 years) Seen by Clinical Staff ONLY (RN/MA): No Pain Present Currently: No Pain scale:: 0 Pain Scale Used: Brandon-Mariee/Sajan Shoe Caser Required: No PCP or OBGYN visit in last 3 months: No Hx Now: No Do You Feel Safe at Home: Yes Authorities Contacted: N/A Smoking Status Smoking Status: Never smoker Immunization / Flu Flu Vaccine in the Last 12 Months: No Flu Vaccine Exclusion Criteria: No Exclusion Criteria Past Medical History Past Medical History CARDIAC: Positive Congestive Heart Failure and Hypertension RESPIRATORY: Negative Chronic Obstructive Pulmonary Disease (COPD) GENITOURINARY: Negative Renal Disease ENDOCRINE: Negative Diabetes Mellitus Type 1 or Diabetes Mellitus Type 2 Social History SMOKING STATUS: Smoking status: Never smoker ALCOHOL FREQUENCY: Alcohol Intake Frequency: 3 or More Drinks per Day HOUSING: Housing: [facility] LIVES WITH: Lives With: Staff-Care Providers Patient Portal Questionaires PHQ-9 PHQ-2 Over the last 2 weeks, how often have you been bothered by any of the following problems? 1. Little interest or pleasure in doing things: not at all PHQ-9 8. Moving or speaking so slowly that other people could have noticed? - Or the opposite - being so fidgety or restless that you have been moving around a lot more than usual: not at all Source: Developed by Drs. Weston Mills, Majo Copeland, Aubrey Villanueva and colleagues, with an educational edna from [employer]. Social History Living Situation History Housing: [facility] Tobacco History Smoking Status: Never smoker Alcohol History Alcohol Intake Frequency: 3 or More Drinks per Day Substance Use History Substance Use: meth, cocaine Domestic Abuse History Do You Feel Safe at Home: Yes Review of Systems Report any current symptoms Only answer those that you have currently: Past Medical History Past Medical History Have you ever been diagnosed with any of the following: Cardiology Problems Congestive Heart Failure: Yes Hypertension: Yes Respiratory Problems Chronic Obstructive Pulmonary Disease (COPD): No Genital/Urinary Problems Renal Disease: No Endocrine Problems Diabetes Mellitus Type 1: No Diabetes Mellitus Type 2: No History of Present Illness HPI Narrative Mr Aguilar is a 59-year-old male with past medical history of coronary artery disease status post stent placement, hypertension, congestive heart failure, hyperlipidemia, substance use disorder (meth, cocaine, marijuana) presenting to the ED on 09/21 with episode of chest pain and shortness of breath will be admitted for observation of chest pain with echocardiogram ordered for CHF exacerbation and cardiology consultation. BNP of 2852 on labs. Chest x-ray showed moderate to large pericardial contour, mild CHF, prominent vascular congestion and early septal edema at the perihilar and lung bases. Per Cardio recommendations, will continue with GDMT with COREG, ENTRESTO, LASIX and FAR XIGA. ECHO showed EEF 15-20%, decrease LV and RV function, dilated cardiomyopathy, diastolic dysfunction present but cannot be graded, mild-mod MR/TR. Will continue with GDMT. Recommended METH/COCAINE cessation given given ECHO findings. Mortality remains very high. Patient will need ICD however currently not a candidate given active METH use. Will need close cardiology follow-up after discharge, with repeat ECHO in 3 months. 09/28/2034: Presented for follow up at [facility] after being treated for acute decompensation of congestive heart failure in hospital. Also noted to have A1c 6.2%. He was discharged on GDMT: Lasix 40mg qD + Farxiga 5mg + Entresto 1tab BID + Coreg 3.125 BID. ECHO : Estimated LVEF 15-20%, severe RV and LV dysfunction, dilated cardiomyopathy. Severe MR and TR. He endorses remarkable improvement in heart failure symptoms, denies any shortness of breath and is able to ambulate on room air comfortably. 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 Endorses being completely clean off methamphetamine and cocaine since discharge, has a positive outlook towards life. He does complain of shortness of breath overnight intermittently, and requests additional 20 mg Lasix for nighttime. He only consumes 1-1.2 L daily. He was advised to increase fluid intake to 1.5-2 L, when taking additional 20 mg of Lasix at bedtime. He also has a 4/6 diastolic murmur, likely due to severe dilated cardiomyopathy, but currently asymptomatic. Will reevaluate in November 23 on follow-up. Lidocaine patch ordered for chronic back pain. Refills ordered for all medications. 11/13/2024: Patient seen for follow up. Doing very well on GDMT. Now follows up with Dr Bai at his clinic, after change of insurance. Cardiology has not changed any medications at this time. He was advised by Dr Bai for a cardiac cath to evaluate for CAD in the next 3-6 months. Echo cardiogram showed LVEF mildly improved, as per patient. He is able top exercise at the gym, mild- moderately strenous activity. Patient became tearful for saving his life and endorses continued compliance and positive attitude towards his health. He has really turned his life around. Will follow up with labs in 6 months from now. Review of Systems Review of Systems Narrative Review of Systems: GENERAL: Denies fevers/chills, diaphoresis. HEENT: Denies headache or visual/hearing changes. Denies nasal discharge. NEURO: Denies unusual weakness or difficulty speaking. CARDIO: Denies chest pain, palpitations. PULM: mild SOB on exertion, no cough or wheezing. GI: Denies abdominal pain, no N/V, no C/D. Reports having BMs URO: Denies burning/itching/pain/urinary changes. MSK/EXT/SKIN: Denies skeletal/muscle pain, changes in upper or lower extremities, itchiness, superficial skin chnages. PSYCH: Cooperative, pleasant mood & affect. The rest of the review of systems is otherwise negative. Objective/Exam Narrative Physical exam: Constitutional Alert, oriented x3 and comfortable. On RA HEENT Vision grossly intact. Patent nares. Trachea midline. Respiratory Chest normal on inspection and clear to auscultation. Cardiovascular S1 and S2 audible, RRR. 4/6 diastolic murmur, severe dilated cardiomyopathy. M ildly + JVD. Abdominal Soft and BS + ; non tender to palpation in all quadrants. Genitourinary No bladder tenderness, no flank pain. Normal to palpation. Musculoskeletal Extremities tone within normal limits. No LE edema. Neurological CN II - XII grossly intact. Extremity motor and sensation grossly intact. Skin Warm, dry and intact. No apparent lesions. Psychiatric Patient has a good affect, is cooperative. Assessment & Plan Diagnosis / Problem List (1) Congestive heart failure: Status: Inactive Assessment & Plan: - August 2024 ECHO : Estimated LVEF 15-20%, severe RV and LV dysfunction, dilated cardiomyopathy. Severe MR and TR. - He endorses remarkable improvement in heart failure symptoms, denies any shortness of breath and is able to ambulate on room air comfortably. - 4/6 diastolic murmur, likely due to severe dilated cardiomyopathy, but curr ently asymptomatic. - was discharged on GDMT: Lasix 40mg qD + Farxiga 5mg + Entresto 1tab BID + Coreg 3.125 BID. - complain of shortness of breath overnight intermittently, and requests additional 20 mg Lasix for nighttime - 11/13 : Doing very well on GDMT. Now follows up with Dr Bai at his clinic, after change of insurance. Cardiology has not changed any medications at this time. Echo cardiogram showed LVEF mildly improved, as per patient. He is able to exercise at the gym, mild-moderately strenous activity. Plan: Continue GDMT : - Lasix 20mg BID - advised to increase fluid intake to 2 L qD - Refills were provided on last visit in August 2024 - He was advised by Dr Bai for a cardiac cath to evaluate for CAD in the next 3-6 months. (2) Type 2 diabetes mellitus: Status: Acute Assessment & Plan: - August 2024 A1c = 6.2% Plan: - Continue Farxiga 5mg - Will epeat Hb A1c on next visit (3) Back pain: Status: Acute Assessment & Plan: chronic, refuses opiods Plan: PRN Lidocaine patch for chronic back pain. Plan follow up with labs in 6 months from now Additional Plan Follow up in October 2024 Office Procedures [facility] Level of Care Nursing/Assessment Patient Status: Established Patient Nursing Assessment/Reassessment: Medication Reconciliation, Update PMH in EMR and Vital Signs Coordination of Care: Complex Care and Chronic Disease 1-5, Consent,records obtained, informed consent, Education Simp Pt/Fam, Lab and Imaging orders and Staff clarify orders Established Patient Charge Established Patient Point Assignment: 100 Established Patient Point Charge: EP Level 3 (80-115)
== END 2024-11-13 12:31 | disposition home or self-care (01) ==
LOC: HODAHC 11:05
PROVIDERS: Supervising Provider Internal Medicine; Visit Provider Student in an Organized Health Care Education/Training Program
DX: I50.9 Heart failure, unspecified (principal); E11.9 Type 2 diabetes mellitus without complications; M54.9 Dorsalgia, unspecified
CPT/HCPCS: 99213; G0463